=== PATIENT | female | born 1985 | race Caucasian/White ===

== ENCOUNTER 2020-05-23 13:47 | Emergency (ER) | payer OTHER, MEDICAID, SELFPAY ==
--- NOTE | ~2020-05-23 | XR_ITS ---
EXAMINATION: XR ankle RT min 3V DATE: 05/23/2020 14:32 INDICATION: Right ankle injury. TECHNIQUE: 4 views of right ankle were obtained. COMPARISON: None. FINDINGS: Bone alignment is normal. No acute fracture. There is heterotopic ossification distal to me dial malleolus, likely from old injury. Joint spaces are normal. There are enthesophytes at the poste rior and plantar aspects of calcaneal tuberosity. IMPRESSION: 1. No acute fracture. Reviewed, dictated and finalized at location A. IMPRESSION: 1. No acute fracture.
[2020-05-23 13:58] VITALS: BP 148/79; PULSE 97; RESP 20; TEMP 36.7; O2SAT 97
--- NOTE | 2020-05-23 14:46 | ED.LOWEXIN ---
HPI - Extremity Injury (Lower) General Chief Complaint: Extremity Injury, Lower Stated Complaint: 35YO female w/ right ankle after she rolled on her r ankle last night. Here for eval. Related Data Home Medications Medication Instructions Recorded Confirmed bupropion HCl 150 mg 24 hr tablet, 150 mg PO QAM 09/30/19 05/23/20 extended release fluoxetine 20 mg capsule 20 mg PO DAILY 09/30/19 05/23/20 multivitamin 1 tablet PO DAILY 09/30/19 05/23/20 omega-3 fatty acids-fish oil 300 1 cap PO DAILY cap 09/30/19 05/23/20 mg-500 mg capsule Allergies Allergy/AdvReac Type Severity Reaction Status Date / Time No Known Allergies Allergy Verified 09/30/19 12:41 Review of Systems Review of Systems: All systems reviewed & are unremarkable except as noted in HPI and below Constitutional: Constitutional: Reports as per HPI and Reports no additional constitutional complaints Eyes: Eyes: Reports as per HPI and Reports no additional eye complaints Cardiovascular: Cardiovascular: Reports as per HPI and Reports no additional cardiovascular complaints Respiratory: Respiratory: Reports as per HPI and Reports no additional respiratory complaints Gastrointestinal: Gastrointestinal: Reports as per HPI and Reports no additional gastrointestinal complaints Musculoskeletal: Musculoskeletal: Reports arthralgias (R Ankle pain) Integumentary/Breasts: Skin/Breast: Reports system reviewed and no additional complaints, except as docu [facility] Family History Family History Father Hypertension Diabetes mellitus Family history of malignant neoplasm Family history of elevated blood lipids Family history of chronic obstructive pulmonary disease Family history of coronary artery disease Mother Family history of malignant neoplasm of breast, Onset Age: 64 Family history of malignant neoplasm of breast in first degree relative Grandparent Family history of malignant neoplasm of urinary bladder Social History Social History Smoking status: Never smoker Second hand tobacco smoke exposure: No Alcohol intake: current Gender identity (if verbalized by the patient): Female Exam Const: General: healthy appearing, no acute distress and alert Orientation/consciousness: patient oriented x3 Neuro: General: patient oriented x3, moves all extremities, no meningeal signs, no focal motor deficits and CN's II-XI intact bilaterally Cranial nerves: Yes Nystagmus not present Speech: normal speech Gait exam (Neuro): Normal gait present Extrem: Other: R Ankle Mild TTP over lateral aspect. Psych: Appearance: grossly normal Mental Status: mental status grossly normal Affect: normal affect and Anxious affect present Attitude: cooperative Thought content: Yes Normal thought content present Course Course Emergency Course: R Ankle X-ray normal Vital Signs Vital signs: Vital Signs Temperature 98.1 F 05/23/20 13:58 Pulse Rate 97 05/23/20 13:58 Respiratory Rate 05/23/20 13:58 Blood Pressure 148/79 H 05/23/20 13:58 Pulse Oximetry 97 05/23/20 13:58 Temperature 98.1 F 05/23/20 13:58 Pulse Rate 97 05/23/20 13:58 Respiratory Rate 05/23/20 13:58 Blood Pressure 148/79 H 05/23/20 13:58 Pulse Oximetry 97 05/23/20 13:58 MDM - Extremity Injury (Lower) Differential Diagnosis Differential diagnosis: Likely ankle sprain and strain and ankle fracture Medical Records Attestation: I reviewed the patient's medical records. Critical Care Time Critical Care Time Critical Care Time: No Discharge Plan Discharge Clinical Impression: Ankle sprain and strain Patient Disposition: Home, Self-Care Condition: Stable Instructions: Antibiotic Form, Ankle Sprain (ED) Prescriptions: New naproxen 500 mg tablet 500 mg PO BID PRN (Reason: pain) Qty: 20 RF: 0 No Action Fish Oil 300-500 m
[2020-05-23 15:05] VITALS: PULSE 84; RESP 20; O2SAT 98
== END 2020-05-23 15:05 | disposition home or self-care (01) ==
PROVIDERS: Emergency Provider Family Medicine; PCP Family Medicine
DX: S93.401A Sprain of unspecified ligament of right ankle, initial encounter (principal)
CPT/HCPCS: 29515; 73610; 99283; L4350

== ENCOUNTER 2020-09-27 07:53 | Emergency (ER) | payer OTHER, MEDICAID, SELFPAY ==
--- NOTE | ~2020-09-27 | CT_ITS ---
EXAMINATION: CT brain wo con, CT cervical spine wo con EXAM DATE: 09/27/2020 08:23 (accession [id number]), 09/27/2020 08:24 (accession [id number]) INDICATION: Head injury, 2 episodes of syncope. Headache and neck pain. TECHNIQUE: Spiral CT of the head was performed without contrast. Axial, coronal and sagittal images were reviewed. Spiral CT of the cervical spine was performed without contrast. Axial images were rev iewed. Coronal and sagittal reformatted images were also reviewed. The dose-length product (DLP) fo r this examination was 605.33 (accession [id number]), 301.37 (accession [id number]) mGy-cm. The exposure was tailored according to patient size, and iterative reconstruction (ASIR) was used as additional dose reduction technique. Comparison is made to prior examination from 07/09/2018 (MRI). FINDINGS: HEAD CT: There is no acute intraparenchymal hemorrhage. No evidence of intraparenchymal brain mass l esion. No evidence of acute infarction. There is no mass effect or midline shift. There is no obstr uctive hydrocephalus suspected. There are no extra-axial collections. There are no acute calvarial fractures. The orbits are unremarkable. Soft tissue is unremarkable. The visualized sinuses and ma stoid air cells are well aerated. CERVICAL CT: Incomplete posterior fusion C1 arch, congenital variant. There is mild reversal of the n ormal cervical lordosis which may be positional or spasm. There is no evidence of acute cervical fra cture. The odontoid process is intact. Pre-dens space is normal. Prevertebral soft tissue is rahul l. There are no soft tissue abnormalities identified. There is no disc space widening or traumatic vertebral body subluxation suspected. Vertebral body and disc heights are well-maintained. A detai led level by level evaluation of spondylosis can be added as addendum if requested. IMPRESSION: 1. No acute intracranial findings or cervical fracture. Reviewed, dictated and finalized at location A. S CAP MAKER IMPRESSION: 1. No acute intracranial findings or cervical fracture.
[2020-09-27 07:56] VITALS: BP 109/70; PULSE 90; RESP 16; TEMP 36.8; O2SAT 100
--- NOTE | 2020-09-27 07:59 | ECG_ITS ---
Measurements Intervals [place] Rate: 86 P: 61 ND: 145 QRS: 17 QRSD: 86 T: 23 QT: 378 QTc: 452 Interpretive Statements SINUS RHYTHM BASELINE WANDER- V6 NORMAL ECG Electronically Signed On 09-27-2020 8:09:56 APPRAISAL MANAGER by Jones Strange D.O.
--- NOTE | 2020-09-27 08:06 | ED.SYNCOPE ---
HPI - Syncope General Chief Complaint: Syncope Stated Complaint: PASSED OUT HIT HEAD Source: patient and EMS Mode of arrival: EMS Limitations: no limitations History of Present Illness HPI narrative: this is a 35-year-old female that presents from home after she passed out and hit her head early this morning prior to her going to work, was witnessed by her 10-year-old daughter unsure of how long she was passed out but there was no seizure activity, no bowel or bladder dysfunction no tongue biting currently she has a headache and some nausea, patient does have a history of migraines and has not had a migraine in quite awhile currently is having migraine-type headache. There is no fever or chills no chest pain no shortness of breath no abdominal pain no diarrhea constipation. Patient currently takes medicine for anxiety and depression. MD complaint: loss of consciousness Onset (ago): unknown Prodromal symptoms: none Witnessed: Yes - by Other Context: at rest Injuries sustained associated with event: neck and head Current symptoms: headache Treatments prior to arrival: none Related Data Home Medications Medication Instructions Recorded Confirmed bupropion HCl 150 mg 24 hr tablet, 150 mg PO QAM 09/30/19 09/27/20 extended release fluoxetine 20 mg capsule 20 mg PO DAILY 09/30/19 09/27/20 ibuprofen 800 mg tablet 800 mg PO TID 06/11/20 09/27/20 Allergies Allergy/AdvReac Type Severity Reaction Status Date / Time No Known Allergies Allergy Verified 08/24/20 10:56 Review of Systems Review of Systems: All systems reviewed & are unremarkable except as noted in HPI and below PMFSH Past Medical History Medical History Ankle sprain Anxiety Cervical radiculopathy Chondromalacia patellae, right knee Chronic headaches Depression GERD (gastroesophageal reflux disease) Intractable chronic post-traumatic headache Left knee pain Lumbar radiculopathy, acute Lymphedema of both lower extremities Migraine without aura and with status migrainosus, not intractable Other specified hearing loss, bilateral Retrocalcaneal bursitis Right ankle pain Vision changes Family History Family History Father Hypertension Diabetes mellitus Family history of malignant neoplasm Family history of elevated blood lipids Family history of chronic obstructive pulmonary disease Family history of coronary artery disease Mother Family history of malignant neoplasm of breast, Onset Age: 64 Family history of malignant neoplasm of breast in first degree relative Grandparent Family history of malignant neoplasm of urinary bladder Social History Social History Smoking status: Never smoker Second hand tobacco smoke exposure: No Alcohol intake: current Gender identity (if verbalized by the patient): Female Exam Const: General: no acute distress and alert Orientation/consciousness: patient oriented x3 HENMT: Head: normal to inspection Eyes: Conjunctivae: conjunctivae normal Pupils: Equal, round and reactive pupils present EOM: EOMs intact bilaterally Neck: Neck: normal visual inspection, no lymphadenopathy and no meningeal signs Chest: Chest palpation & inspection: normal inspection of the chest Resp: Effort & Inspection: normal respiratory effort Auscultation: clear to auscultation bilaterally Cardio: Rate: regular rate Rhythm: regular rhythm GI: GI Palp: Yes Soft to palpation Urinary Catheter: Urinary Catheter: patent and draining Back/Spine/Pelvis: Back: no CVA tenderness Skin: General skin exam: normal color Neuro: General: patient oriented x3, moves all extremities and no meningeal signs Extrem: General: normal to inspection Psych: Appearance: grossly normal Mental Status: mental status grossly normal Affect: normal affect Course Course Em
[2020-09-27 08:17] LABS: Basophils Absolute Auto 0.04 K/mm3 (0.00-0.10); Basophils Percent Auto 0.6 % (0.0-1.0); Eosinophils Absolute Auto 0.07 K/mm3 (0.02-0.50); Eosinophils Percent Auto 1.1 % (1.0-6.0); Hematocrit 36.5 % (35.0-49.0); Hemoglobin 12.1 g/dL (12.0-15.0); Immature Granulocyte Absolute 0.03 K/mm3 (0.00-0.00); Immature Granulocyte Percent A 0.5 % (0.0-0.0); Lymphocytes Absolute Auto 1.83 K/mm3 (1.10-4.50); Lymphocytes Percent Auto 28.5 % (18.0-42.0); Mean Corpuscular HGB Conc 33.2 g/dL (32.0-36.0); Mean Corpuscular Hemoglobin 30.4 pg (27.0-31.0); Mean Corpuscular Volume 91.7 fL (78.0-102.0); Mean Platelet Volume 11.8 fl (9.2-11.8); Monocytes Absolute Auto 0.45 K/mm3 (0.10-0.90); Neutrophils Percent Auto 62.3 % (50.0-70.0); Platelet Count Result 208 K/mm3 (150-420); Red Blood Count 3.98 M/mm3 (4.20-5.40); Red Cell Distribution Width 12.3 % (11.6-14.4); White Blood Count 6.4 K/mm3 (4.8-10.8)
[2020-09-27] MEDS: SODIUM CHLORIDE 0.9% IV 1,000 ML 999 ML IV CONT (08:25)
[2020-09-27 08:33] LABS: Alanine Aminotransferase 21 U/L (14-59); Albumin Level 3.4 g/dL (3.4-5.0); Alkaline Phosphatase 51 U/L (46-116); Anion Gap 11 mmol/L (8-16); Aspartate Amino Transferase 16 U/L (15-37); Bilirubin,Total 0.4 mg/dL (0.00-1.00); Blood Urea Nitrogen 17 mg/dL (7-18); Calcium 8.9 mg/dL (8.5-10.1); Carbon Dioxide 25 mmol/L (21-32); Chloride 103 mmol/L (98-108); Estimated CRCL calculation 72 ml/min; Estimated Glomerular Filt Rate 52; Glucose 109 mg/dL (70-99); Lactic Acid Reflex 1.5 mmol/L (0.4-2.0); Osmolality Calculated 290 mOsm/kg (285-295); Potassium 4.2 mmol/L (3.5-5.1); Sodium 139 mmol/L (136-145); Total Protein 7.4 g/dL (6.4-8.2); Troponin I 6.8 ng/L (0.00-60.4)
[2020-09-27 08:35] LABS: Magnesium 1.8 mg/dL (1.8-2.4)
[2020-09-27] MEDS: ONDANSETRON INJ 4 MG/2 ML VIAL IV PUSH (08:35)
[2020-09-27 08:47] VITALS: BP 114/74; PULSE 83
[2020-09-27 08:48] VITALS: BP 110/67; PULSE 81
[2020-09-27 08:49] VITALS: BP 128/73; PULSE 93
[2020-09-27 09:52] LABS: Add Urine Microscopic? YES; Appearance Urine Sl Cloudy (Clear); Bilirubin Urine Negative (Negative); Blood Urine Negative (Negative); Color Urine Yellow (Yellow); Glucose Urine UA Negative (Negative); Ketones Urine Negative (Negative); Leukocyte Esterase Ur 1+ LEU/UL (Negative); Nitrate Urine Negative (Negative); Protein Urine Negative (Negative); Urobilinogen Urine 0.2 mg/dL (0.2-1.0)
[2020-09-27 09:59] LABS: Bacteria Urine 1+ /hpf; RBC Urine None seen /hpf (0-2); Squamous Epithelial Cell Urine Few /hpf (Few); WBC Urine 16-20 /hpf (0-3)
[2020-09-27 10:05] LABS: Amphetamine Screen Urine Negative (Negative); Barbiturate Screen Urine Negative (Negative); Benzodiazepines Screen Urine Negative (Negative); Cannabinoid Screen Urine Negative (Negative); Cocaine Screen Urine Negative (Negative); Methadone Screen Urine Negative (Negative); Opiate Screen Urine Negative (Negative); Phencyclidine Screen Urine Negative (Negative)
[2020-09-27 10:16] VITALS: BP 111/63; PULSE 85; RESP 20; O2SAT 99
--- NOTE | 2020-09-27 10:26 | ED.WEAKNESS ---
HPI - Weakness General Chief complaint: Syncope Stated complaint: PASSED OUT HIT HEAD Source: patient and EMS Mode of arrival: EMS Limitations: no limitations History of Present Illness HPI Narrative: This is a 20 MD Complaint: generalized weakness Onset (ago): hour(s) Duration: intermittent Location: generalized Migration: none Severity: mild Quality: tingling, numbness and aching Relieving factors: none Exacerbating factors: morning Related Data Home Medications Medication Instructions Recorded Confirmed bupropion HCl 150 mg 24 hr tablet, 150 mg PO QAM 09/30/19 09/27/20 extended release fluoxetine 20 mg capsule 20 mg PO DAILY 09/30/19 09/27/20 ibuprofen 800 mg tablet 800 mg PO TID 06/11/20 09/27/20 Allergies Allergy/AdvReac Type Severity Reaction Status Date / Time No Known Allergies Allergy Verified 08/24/20 10:56 [facility] Past Medical History Medical History Ankle sprain Anxiety Cervical radiculopathy Chondromalacia patellae, right knee Chronic headaches Depression GERD (gastroesophageal reflux disease) Intractable chronic post-traumatic headache Left knee pain Lumbar radiculopathy, acute Lymphedema of both lower extremities Migraine without aura and with status migrainosus, not intractable Other specified hearing loss, bilateral Retrocalcaneal bursitis Right ankle pain Vision changes Family History Family History Father Hypertension Diabetes mellitus Family history of malignant neoplasm Family history of elevated blood lipids Family history of chronic obstructive pulmonary disease Family history of coronary artery disease Mother Family history of malignant neoplasm of breast, Onset Age: 64 Family history of malignant neoplasm of breast in first degree relative Grandparent Family history of malignant neoplasm of urinary bladder Social History Social History Smoking status: Never smoker Second hand tobacco smoke exposure: No Alcohol intake: current Gender identity (if verbalized by the patient): Female Course Vital Signs Vital signs: Vital Signs Temperature 36.8 C 09/27/20 07:56 Pulse Rate 90 09/27/20 07:56 Respiratory Rate 16 09/27/20 07:56 Blood Pressure 109/70 09/27/20 07:56 Pulse Oximetry 100 09/27/20 07:56 Temperature 36.8 C 09/27/20 07:56 Pulse Rate 85 09/27/20 10:16 Respiratory Rate 20 09/27/20 10:16 Blood Pressure 111/63 09/27/20 10:16 Pulse Oximetry 99 09/27/20 10:16 MDM - Weakness Lab Data Result diagrams: 09/27/20 08:10 09/27/20 08:10 Labs: Lab Results 09/27/20 09/27/20 09/27/20 Range/Units 08:10 08:10 08:10 WBC 6.4 (4.8-10.8) K/mm3 RBC 3.98 L (4.20-5.40) M/mm3 Hgb 12.1 (12.0-15.0) g/dL Hct 36.5 (35.0-49.0) % MCV 91.7 (78.0-102.0) fL MCH 30.4 (27.0-31.0) pg MCHC 33.2 (32.0-36.0) g/dL RDW 12.3 (11.6-14.4) % Plt Count 208 (150-420) K/mm3 MPV 11.8 (9.2-11.8) fl Immature Gran % (Auto) 0.5 H (0.0-0.0) % Neut % (Auto) 62.3 (50.0-70.0) % Lymph % (Auto) 28.5 (18.0-42.0) % [place] % (Auto) 7.0 (2.0-11.0) % Eos % (Auto) 1.1 (1.0-6.0) % Baso % (Auto) 0.6 (0.0-1.0) % Lymph # (Auto) 1.83 (1.10-4.50) K/mm3 [place] # (Auto) 0.45 (0.10-0.90) K/mm3 Eos # (Auto) 0.07 (0.02-0.50) K/mm3 Baso # (Auto) 0.04 (0.00-0.10) K/mm3 Abs Immat Gran (auto) 0.03 H (0.00-0.00) K/mm3 Absolute Neuts (auto) 4.0 (1.7-7.2) K/mm3 Absolute Nucleated RBC 0.00 (0.00-0.00) K/mm3 Nucleated RBC % 0.0 (0-0.0) % Sodium 139 (136-145) mmol/L Potassium 4.2 (3.5-5.1) mmol/L Chloride 103 (98-108) mmol/L Carbon Dioxide 25 (21-32) mmol/L Anion Gap 11 (8-16) mmol/L BUN 17 (7-18) mg/dL Creatinine 1.18 H (0.55-1.02) m
== END 2020-09-27 10:40 | disposition home or self-care (01) ==
PROVIDERS: Emergency Provider Emergency Medicine; PCP Family Medicine
DX: N30.00 Acute cystitis without hematuria (principal); R55 Syncope and collapse
CPT/HCPCS: 36415; 70450; 72125; 80053; 80307; 81001; 83605; 83735; 84484; 85025; 87086; 93005; 96361; 96374; 99283; 99284; J2405; J7030

== ENCOUNTER 2020-11-02 15:30 | Outpatient (RCR) | payer OTHER, MEDICAID, SELFPAY ==
--- NOTE | 2020-10-21 15:47 | PTOPEVAL ---
PHYSICAL THERAPY EVALUATION AND PLAN OF CARE 10-21-20 Thank you for referring Ludmila Vang to [facility] [place], with the diagnosis of BPPV. Her treatment plan includes treatment of her chronic cervical pain and headaches, which can also cause vestibular issues. She is scheduled to be seen for therapy? 1-2 x/week for 5 weeks. Please review, sign, date and return this plan of care MARLENY. I agree with and certify that the following plan of care is medically necessary. Referring Physician Date Attending Provider: KIMBERLY SorianoPT Outpatient Evaluation Document 10/21/20 14:30 FOZIA (Rec: 10/21/20 15:47 FOZIA [id number]) Outpatient Past Medical History Past Medical History Source of Past Medical History Patient Neurological History Hx Migraine Yes Hx Other Neurological Disorders Yes: concussion, migraines daily- take excedrin daily Cardiovascular History Hx Cardiac Disorders No Significant History Respiratory History Hx Other Respiratory Disorders Yes: seasonal allergies- main with /spring Gastrointestinal History Hx Irritable Bowel Yes Genitourinary History Hx Genitourinary Disorders No Significant History Musculoskeletal History Hx Other Musculoskeletal Disorders Yes: R ankle sprain; Endocrine History Hx Endocrine Disorders No Significant History HEENT History Hx Other HEENT Disorders Yes: glasses- not had eye exam in 2 yrs Integumentary History Hx Skin Disorders No Significant History Reproductive History Hx Reproductive Disorders No Significant History Psychosocial History Hx Depression Yes Evaluation Information Problem Diagnosis positional vertigo Onset Sep 27, 2020 Prior Level of Function Activity Level (Last 3 Months) 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
--- NOTE | 2020-10-26 09:58 | PCPTNOTE ---
pt called and canceled today's treatment due to having to work;
--- NOTE | 2020-11-09 11:26 | PCPTNOTE ---
Patient called & cancelled scheduled appointment this date due to work.
--- NOTE | 2020-11-16 12:37 | PCPTNOTE ---
Patient called & cancelled scheduled appointment this date due to work.
--- NOTE | 2020-11-25 15:56 | PCPTNOTE ---
pt did not show for reevaluation today; called and left her a voice message that appt was missed. And to call if additional therapy is needed.
--- NOTE | 2020-12-10 16:00 | PCPTNOTE ---
PHYSICAL THERAPY DISCHARGE 12-10-20 Attending Provider: Cass Narayan MD Patient:Ludmila Vang Date of :1985 Ms. Vang has not returned for any further treatments since 11/02/2020, therefore she will be discharged at this time. She received the PT evaluation and one treatment session, for the diagnosis of BPPV. She called and canceled 3 and did not show for 1 appointment. The goals were not assessed. Thank you for referring Ludmila to [facility]. Please review, sign, date and return this discharge summary MARLENY. I have been updated about the patient's current status and I agree with discharge from the above service at this time. Referring Physician Date
== END 2020-12-13 07:57 | disposition home or self-care (01) ==
LOC: ANHPT 15:30
PROVIDERS: PCP Family Medicine; Referring Provider Family Medicine; Visit Provider Family Medicine
DX: H81.10 Benign paroxysmal vertigo, unspecified ear (principal)
CPT/HCPCS: 97110; 97140; 97162

== ENCOUNTER 2020-12-13 17:20 | Outpatient (CLI) | payer OTHER, MEDICAID, SELFPAY | END 2020-12-13 17:21 | disposition home or self-care (01) | LOC: ANHCOVIDVC 17:20 | PROVIDERS: PCP Family Medicine | DX: Z23 Encounter for immunization (principal) | CPT/HCPCS: 0001A; 91300 ==

== ENCOUNTER 2020-12-20 06:49 | Outpatient (CLI) | payer OTHER, MEDICAID, SELFPAY ==
--- NOTE | ~2020-12-20 | MR_ITS ---
EXAMINATION: MR brain IAC wo/w con DATE: 12/20/2020 08:09 INDICATION: Dizziness and giddiness. Tinnitus. TECHNIQUE: Magnetic resonance imaging (MRI) of the brain, brainstem, and internal auditory canals was performed without and with 20 mL MultiHance intravenous contrast. Sequences included sagittal and ax ial T1-weighted FSE, axial diffusion-weighted FS EPI, axial T2*-weighted GRE, axial T2-weighted FLAIR Propeller, axial T2-weighted Propeller, small ttvko-bi-hzzq coronal FIESTA, small agjjk-fg-arxf brian nal T1-weighted FSE, and small jqrjp-sv-pgyr axial T1-weighted SPGR. Postcontrast sequences included axial T1-weighted FSE, small ccmiv-kh-pjkf coronal T1-weighted FSE, and small indtj-ae-rhjc axial T1- weighted SPGR. Apparent diffusion coefficient (ADC) maps were created. COMPARISON: Brain MRI 07/09/2018 FINDINGS: There is no intracranial hemorrhage, acute infarction, or abnormal intracranial mass lesion . 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 The ventricles are normal in size. Cavu m septum pellucidum is noted. The paranasal sinuses are clear. The orbits are normal. The internal au ditory canals and inner and middle ears are normal. IMPRESSION: 1. Normal brain. Reviewed, dictated and finalized at location B. IMPRESSION: 1. Normal brain.
[2020-12-20 07:20] LABS: Estimated Glomerular Filt Rate > 60
[2020-12-20 08:51] LABS: Hematocrit 38.2 % (37.0-47.0); Hemoglobin 12.6 g/dL (12.0-15.0); Mean Corpuscular Hemoglobin 30.2 pg (26-34); Mean Corpuscular Volume 91.6 fl (80-100); Platelet Count Result 239 k/mm3 (150-375); Red Blood Count 4.17 M/mm3 (4.2-5.4); Red Cell Distribution Width 12.5 % (11.5-14.5); White Blood Count 7.5 K/mm3 (4.5-10.0)
[2020-12-20 09:10] LABS: Alanine Aminotransferase 17 U/L (4-35); Alkaline Phosphatase 54 U/L (38-126); Anion Gap 6 mmol/L (8-16); Aspartate Amino Transferase 25 U/L (14-36); Bilirubin,Total 0.8 mg/dL (0.2-1.3); Blood Urea Nitrogen 20 mg/dL (7-17); Calcium 9.5 mg/dL (8.4-10.2); Carbon Dioxide 25 mmol/L (22-30); Chloride 107 mmol/L (98-107); Cholesterol 183 mg/dL (0-200); Estimated Glomerular Filt Rate > 60; Glucose 96 mg/dL (65-105); HDL Direct 72 mg/dL; Sodium 138 mmol/L (137-145); Triglycerides 102 mg/dL (<150)
[2020-12-20 09:20] LABS: LDL Cholesterol Direct 84 mg/dL
[2020-12-20 11:16] LABS: Vitamin D 25 Hydroxy 57.4 ng/mL
== END 2020-12-20 06:50 | disposition home or self-care (01) ==
PROVIDERS: PCP Family Medicine; Referring Provider Nurse Practitioner; Visit Provider Physician Assistant
DX: R42 Dizziness and giddiness (principal); Z00.00 Encounter for general adult medical examination without abnormal findings
CPT/HCPCS: 70553; 80053; 80061; 82306; 82607; 83036; 84439; 84443; 85027; A9577

== ENCOUNTER 2021-01-03 17:04 | Outpatient (CLI) | payer OTHER, MEDICAID, SELFPAY | END 2021-01-03 17:05 | disposition home or self-care (01) | LOC: ANHCOVIDVC 17:05 | PROVIDERS: PCP Family Medicine | DX: Z23 Encounter for immunization (principal) | CPT/HCPCS: 0002A; 91300 ==

== ENCOUNTER 2021-01-27 08:09 | Outpatient (CLI) | payer OTHER, MEDICAID, SELFPAY | END 2021-01-27 08:10 | disposition home or self-care (01) | LOC: ANHAUDIO 08:11 | PROVIDERS: PCP Family Medicine; Visit Provider Otolaryngology | DX: H91.90 Unspecified hearing loss, unspecified ear (principal); H93.13 Tinnitus, bilateral; R42 Dizziness and giddiness | CPT/HCPCS: 92557; 92567 ==

== ENCOUNTER 2021-04-18 00:30 | Day surgery (SDC) | payer OTHER, MEDICAID, SELFPAY ==
[2021-04-12 16:26] VITALS: BMI 39.9
[2021-04-18] VITALS (9 sets, daily range): BP systolic 113–132; BP diastolic 69–84; PULSE 69–86; RESP 12–14; TEMP 36.3; O2SAT 93–100
[2021-04-18] MEDS: ACETAMINOPHEN 500 MG TABLET 1000 MG PO (06:54)
[2021-04-18] MEDS: LACTATED RINGERS 1,000 ML 30 ML IV CONT ×2 (07:00→08:36)
--- NOTE | 2021-04-18 07:03 | WPDHPUPDATE1 ---
History and Physical Update Update Date/Time: 04/18/21 07:03 History and Physical has been reviewed, including an updated exam of the patient. There are NO changes in the patient's condition. Risks, benefits, and alternatives have been discussed and questions answered. Patient agrees to proceed with procedure.
--- NOTE | 2021-04-18 07:03 | PM.HPGS ---
History of Present Illness History of Present Illness Consent: Risks, benefits, and alternatives have been discussed and questions answered. Patient agrees to proceed with procedure. Chief complaint: Desires Sterilization Narrative: Ludmila Vang is a 35 year old female requesting permanent controlvia tubal ligation. Reviewed the risks of infection, bleeding, injury to internal organs, tubal failure rate with increased ectopic, and permanent, irreversible nature of tubal. Patient agrees to proceed. Review of Systems Review of Systems: not repeated day of surgery; patient states no changes in status PMFSH Past Medical History Medical History (Updated 04/18/21 @ 07:06 by Shanelle Reyes MD) Anxiety Depression GERD (gastroesophageal reflux disease) Intractable chronic post-traumatic headache Lymphedema of both lower extremities Migraine without aura and with status migrainosus, not intractable (normal spontaneous vaginal delivery) Other specified hearing loss, bilateral Family History Family History Father Hypertension Diabetes mellitus Family history of malignant neoplasm Family history of elevated blood lipids Family history of chronic obstructive pulmonary disease Family history of coronary artery disease Mother Family history of malignant neoplasm of breast, Onset Age: 64 Family history of malignant neoplasm of breast in first degree relative Grandparent Family history of malignant neoplasm of urinary bladder Social History Social History Smoking status: Never smoker Second hand tobacco smoke exposure: No Alcohol intake: current Substance use: never Living arrangements: with family Gender identity (if verbalized by the patient): Female Sexual Orientation (if Verbalized by the Patient): Straight or Heterosexual Spiritual care concerns: No Meds Home Medications and Allergies Home Medications Medication Instructions Recorded Confirmed Type fluoxetine 20 mg capsule 20 mg PO DAILY 09/30/19 04/18/21 History ibuprofen 800 mg tablet 800 mg PO TID #90 tablet 10/04/20 04/18/21 Rx acetazolamide 250 mg tablet 250 mg PO BID #60 tablet 02/21/21 04/18/21 Rx meclizine 12.5 mg tablet See Rx Instructions .ROUTE 03/15/21 04/18/21 Rx .COMPLEX #30 tablet cholecalciferol (vitamin D3) 10 mcg PO DAILY 04/12/21 04/18/21 History [Vitamin D3] drospirenone-ethinyl estradiol 3 tablet PO DAILY 04/12/21 04/18/21 History [Nakul (28)] folic acid-vitamin B6-vit B12 1 tablet PO DAILY 04/12/21 04/18/21 History omeprazole 20 mg PO DAILY 04/12/21 04/18/21 History propranolol 20 mg PO DAILY 04/12/21 04/18/21 History Allergies Allergy/AdvReac Type Severity Reaction Status Date / Time No Known Allergies Allergy Verified 04/18/21 06:31 Exam Const: General: healthy appearing and alert Orientation/consciousness: patient oriented x3 Resp: Effort & Inspection: normal respiratory effort Auscultation: clear to auscultation bilaterally Cardio: Rate: regular rate Rhythm: regular rhythm GI: GI Palp: Yes Soft to palpation, No Tenderness to palpation present (GI) and No Palpable mass present : External Female Exam: normal external appearance Speculum Exam - Vagina: normal appearance of the vagina and normal vaginal discharge Speculum Exam - Cervix: normal appearance of the cervix Bimanual exam- vagina & uterus: uterine size normal and consistency normal Bimanual Exam- Adnexa, other: normal adnexae and No adnexal tenderness Neuro: General: patient oriented x3 Assessment and Plan Assessment and plan (1) Encounter for sterilization: Code(s): Z30.2 - Encounter for sterilization Status: Acute Assessment and Plan: plan to proceed with laparoscopic BTL with falope rings
[2021-04-18] MEDS: KETOROLAC 15 MG/ML VIAL (*BKC) IV PUSH (07:08)
--- NOTE | 2021-04-18 07:14 | WPDANESEPPF ---
Anes - Initial Pre Proc Eval Procedure: Operation Date: 04/18/21 07:30 Proposed Procedures p Laparoscopic Bilateral Tubal Ligation With Fallopian Rings - Shanelle Reyes MD Date/Time: 04/18/21 07:14 Surgeon: Shanelle Reyes MD Pre Op Diagnosis: Desires Sterilization Patient Data Age: 35 Gender: F Height: 1.65 m Weight: 111 kg Allergies Allergy/AdvReac Type Severity Reaction Status Date / Time No Known Allergies Allergy Verified 04/18/21 06:31 Home Medications Medication Instructions Recorded Confirmed Type fluoxetine 20 mg capsule 20 mg PO DAILY 09/30/19 04/18/21 History ibuprofen 800 mg tablet 800 mg PO TID #90 tablet 10/04/20 04/18/21 Rx acetazolamide 250 mg tablet 250 mg PO BID #60 tablet 02/21/21 04/18/21 Rx meclizine 12.5 mg tablet See Rx Instructions .ROUTE 03/15/21 04/18/21 Rx .COMPLEX #30 tablet cholecalciferol (vitamin D3) 10 mcg PO DAILY 04/12/21 04/18/21 History [Vitamin D3] drospirenone-ethinyl estradiol 3 tablet PO DAILY 04/12/21 04/18/21 History [Loryna (28)] folic acid-vitamin B6-vit B12 1 tablet PO DAILY 04/12/21 04/18/21 History omeprazole 20 mg PO DAILY 04/12/21 04/18/21 History propranolol 20 mg PO DAILY 04/12/21 04/18/21 History Laboratory Tests 04/18/21 06:47 Beta HCG, Quant Pending Patient hx anesthesia problems: none Family hx anesthesia problems: none PMFSH Past Medical History Medical History Anxiety Depression GERD (gastroesophageal reflux disease) Intractable chronic post-traumatic headache Lymphedema of both lower extremities Migraine without aura and with status migrainosus, not intractable (normal spontaneous vaginal delivery) Other specified hearing loss, bilateral Family History Family History Father Hypertension Diabetes mellitus Family history of malignant neoplasm Family history of elevated blood lipids Family history of chronic obstructive pulmonary disease Family history of coronary artery disease Mother Family history of malignant neoplasm of breast, Onset Age: 64 Family history of malignant neoplasm of breast in first degree relative Grandparent Family history of malignant neoplasm of urinary bladder Social History Social History Smoking status: Never smoker Second hand tobacco smoke exposure: No Alcohol intake: current Substance use: never Living arrangements: with family Gender identity (if verbalized by the patient): Female Sexual Orientation (if Verbalized by the Patient): Straight or Heterosexual Spiritual care concerns: No Anes - Eval Final PreProcedure Day of Procedure 04/18/21 07:14 Patient weight: morbidly obese Heart: regular rate and rhythm Lungs: clear to auscultation Airway: Mallampati scale class II Neurological: alert and oriented Last oral intake: >/= 8 hours ASA classification: III Emergent: no Anesthetic plan: proceed Anesthesia type and monitoring: general ETT and standard monitoring Informed Consent: The patient's anesthetic plan and its attendant risks and benefits were discussed with the patient/family/POA. Questions were solicited and answers provided to the satisfaction of the patient/family/POA.
[2021-04-18] MEDS: SCOPOLAMINE 1.5 MG PATCH TRANSDERM (07:22)
[2021-04-18 07:47] LABS: Beta HCG Quantitative < 2.39 mIU/ML
--- NOTE | 2021-04-18 08:02 | P.OP_ITS ---
Procedure Note - Detailed Date of Procedure 04/18/21 Pre-op Diagnosis Desires Sterilization Post-op Diagnosis same Procedure Performed Laparoscopic bilateral tubal ligation with Falope rings Surgeon Shanelle Reyes MD Anesthesia general Findings the uterus sounds to 8cm; tubes ovaries and uterus appeared grossly normal Description of Procedure the patient is taken to the operating room and placed under anesthesia in the dorsal lithotomy position. She was prepped and draped in the usual sterile fashion. Bladder was drained with a red rubber catheter. Sherwood speculum was placed in the vagina and the anterior lip of the cervix grasped with a tenac ulum. The uterus is sounded to 8cm and a HUGO manipulator is placed. All other vaginal instruments are removed. Attention is then turned to the abdomen where a vertical skin incision is made with the scalpel at the base of the umbilicus. The abdomen is tented and the Veress needle placed. Water drop test was normal and opening patient pressure was 7mmHg. Pneumoperitoneum was obtained using CO2 to a patient pressure of 15mmHg. The Veress needle was removed and the 5mm trocars placed it is noted to be too short. The long 5mm trocar is then opened and placed and intra-abdominal placement was confirmed with the laparoscoped. Patient is placed in Trendelenburg and the 8mm skin incision was made 2cm above this and this is pubis. The 8mm trocars placed. The blunt probe was used to bring the tubes into the surgical field. The ring applicator was used to apply a ring to each tube with a good loop of tube noted within each. Picture documentation is taken. All instruments are removed, pneumoperitoneum was reduced, and the patient was taken out of Trendelenburg position. The skin incisions were closed using 4-0 nylon in interrupted fashion. Vaginal instruments are removed. All sponge, needle, and instrument counts are correct per the OR staff. Patient is awakened from anesthesia and taken to recovery in stable condition. Estimated Blood Loss 5 Drains No Packing No Pathology none sent Complications No immediate complications Condition stable Disposition PACU
[2021-04-18] MEDS: HYDROmorphone HCL INJ (*CRX) 1 MG/ML SYR 0.5 MG IV PUSH ×3 (08:27→09:11)
[2021-04-18] MEDS: MEPERIDINE HCL INJ (*CRX) 50 MG/ML AMPUL 25 MG IV PUSH ×2 (08:44→08:53)
== END 2021-04-18 10:15 | disposition home or self-care (01) ==
PROVIDERS: PCP Family Medicine; Visit Provider Obstetrics & Gynecology Gynecology
PROC: (CPT 58671; principal; 2021-04-18 07:30)
DX: Z30.2 Encounter for sterilization (principal); F41.8 Other specified anxiety disorders; K21.9 Gastro-esophageal reflux disease without esophagitis; I89.0 Lymphedema, not elsewhere classified; G43.001 Migraine without aura, not intractable, with status migrainosus; E66.01 Morbid (severe) obesity due to excess calories; Z68.41 Body mass index [BMI] 40.0-44.9, adult
CPT/HCPCS: 58671; 36415; 84702; A4264; A9270; J0330; J1100; J1170; J1885; J2175; J2250; J2405; J2704; J3010; J7120

== ENCOUNTER 2022-03-27 16:09 | Outpatient (CLI) | payer OTHER, SELFPAY ==
--- NOTE | ~2022-03-27 | MR_ITS ---
EXAMINATION: MR cervical spine wo/w con DATE: 03/27/2022 17:13 INDICATION: Migraine variant TECHNIQUE: Magnetic resonance imaging (MRI) of the cervical spine was performed without intravenous c ontrast. Sequences included sagittal T2-weighted FSE, sagittal T2-weighted FS FSE, sagittal T1-weight ed FSE, axial MERGE and axial T2-weighted FSE. COMPARISON: None FINDINGS: Mild cervical thoracic levocurvature. Sagittal alignment is normal. Vertebral body heights are rahul l. Bone marrow signal intensity is normal. Mild disc height loss at C3-C4 and C5-C6. Cord signal int ensity is normal. Visualized cervical soft tissues are unremarkable. The following disc levels are sp ecifically discussed: C2-C3: The disc does not extend beyond the endplate margin. There is no uncovertebral joint osteoarth ritis. There is no facet joint osteoarthritis. There is no neural foraminal stenosis. There is no bk tral canal stenosis. C3-C4: Disc is bulging. There is mild bilateral uncovertebral joint osteoarthritis. There is no facet joint osteoarthritis. There is mild left neural foraminal stenosis. There is mild central canal sten osis. C4-C5: The disc does not extend beyond the endplate margin. There is mild bilateral uncovertebral syed nt osteoarthritis. There is mild right facet joint osteoarthritis. There is no neural foraminal steno sis. There is no central canal stenosis. C5-C6: Disc is mildly bulging with superimposed left paracentral disc protrusion. There is mild left and moderate right uncovertebral joint osteoarthritis. There is mild bilateral facet joint osteoarthr itis. There is mild right neural foraminal stenosis. There is mild central canal stenosis. C6-C7: Minimal central disc protrusion. There is mild right uncovertebral joint osteoarthritis. There is no facet joint osteoarthritis. There is no neural foraminal stenosis. There is no central canal s tenosis. C7-T1: The disc does not extend beyond the endplate margin. There is no uncovertebral joint osteoarth ritis. There is mild bilateral facet joint osteoarthritis. There is no neural foraminal stenosis. The re is no central canal stenosis. IMPRESSION: 1. Mild cervical spondylosis. Reviewed, dictated and finalized at location A.
[2022-03-27 16:41] LABS: Estimated Glomerular Filt Rate > 60
== END 2022-03-27 16:10 | disposition home or self-care (01) ==
PROVIDERS: PCP Family Medicine; Visit Provider Psychiatry & Neurology Neurology
DX: G43.809 Other migraine, not intractable, without status migrainosus (principal); M47.812 Spondylosis without myelopathy or radiculopathy, cervical region
CPT/HCPCS: 72156; A9577

== ENCOUNTER 2022-10-26 08:40 | Outpatient (CLI) | payer OTHER, SELFPAY ==
--- NOTE | 2022-10-26 10:45 | NEURO_ITS ---
Impression: # Complains of numbness of hands. # Mild sensory right Carpal Tunnel Syndrome. # No ulnar neuropathy. # Normal needle/EMG exam. Motor Nerve Conduction Upper Extremities Median Nerve Conduction Velocity (m/sec) Terminal Latency (msec) Response Voltage(mV) Elbow-Wrist Wrist Elbow Wrist Right 58 3.1 4 4 Left 57 3.0 2 5 Ulnar Nerve Conduction Velocity (m/sec) Terminal Latency (msec) Response Voltage(mV) Above Elbow Below Elbow Wrist Above Elbow Below Elbow Wrist Right 58 2.0 2 3 Left 60 2.3 5 6 F-Wave Latency Median (ms) Ulnar (ms) Right 29.5 28.6 Left 28.4 27.8 Sensory Nerve Conduction Upper Extremities Median Nerve Stimulation Terminal Latency (msec) Wrist/Digit Response Voltage (uV) Wrist Right 4.2/4.5 24/11 Left 3.5/3.5 41/18 Ulnar Nerve Stimulation Terminal Latency (msec) Wrist/Digit Response Voltage (uV) Wrist Right 2.2 55 Left 2.6 36 Radial Nerve Terminal Latency (msec) Response Voltage(mV) Right 2.4 11 Left 2.1 15 Left Right Muscles Examined Fibrillation Fasciculation Scarcity Voltage Duration Left Right Left Right Left Right Left Right Left Right Deltoid Biceps X X Brachioradialis Triceps X X Pronator Teres X X Ext Indicis X X Ext Digitorum X X Abd Poll Brev X X 1st Dorsal Interosseus X X Abd Dig Min MTDD
== END 2022-10-26 08:41 | disposition home or self-care (01) ==
LOC: ANHNEURO 08:41
PROVIDERS: PCP Family Medicine; Visit Provider Psychiatry & Neurology Neurology
DX: G56.01 Carpal tunnel syndrome, right upper limb (principal)
CPT/HCPCS: 95886; 95911

== ENCOUNTER 2023-01-05 00:50 | Day surgery (SDC) | payer OTHER, SELFPAY ==
[2022-12-28 11:03] VITALS: BMI 40.2
--- NOTE | 2022-12-28 11:07 | PC.NURSE ---
Report to the Outpatient Waiting Room, entrance under the green pavilion located off [facility], at time 1130 on date 01/05/23. Planned Procedure Time: 1330. Time changes happen often and if your time is changed the preop area will call you the afternoon before. - You and your visitor will be asked to self-screen and do not enter if you have any COVID symptoms. - A mask is optional within the hospital at this time. Patients may have clear liquids (water, carbonated beverages, clear teas, apple juice) until 3 hours prior to surgery with a maximum of 20 ounces. - No food from midnight until time of surgery Take the following medications with a SIP of water the morning of surgery: NONE DO NOT STOP ANY OF YOUR OTHER PRESCRIPTION MEDICATIONS PRIOR TO SURGERY EXCEPT THE FOLLOWING Medications to discontinue per physician: N/A Date to take last dose: N/A Please no make-up, nail romanian, hairspray, perfume, deodorant, or body powder the day of surgery. No jewelry (including any body piercings) or valuables the day of surgery, leave them at home. Please take a shower or bath the night before, or the morning of, surgery with an antibacterial soap. Wear comfortable, loose fitting clothing. - Jewelry must be removed prior to entering the operating room. Rings and piercings that are not removed may be cut off. - The hospital will not accept responsibility for valuables. - Please leave all valuables, including medications, at home the day of surgery. If you are going home after surgery, a licensed driver service technician must drive you home. - NO public transportation without another adult if you receive anesthesia. - We recommend that an adult stay with you for 24 hours following discharge. - We also recommend that you do not drive, make important decision, drink alcoholic beverages, or take any drugs that were not prescribed by your health care provider for at least 24 hours after your discharge time. Follow any additional instructions given to you from your surgeon. If you or anyone in your household have experienced Covid symptoms in the past week, please notify your surgeon or the nurse liaison at the phone number below for possible testing. Telephone instructions given to PT - LUCINDA PEMBERTON and asked if any additional questions and then verbalized understanding. Patient advised to call surgeon office or pre surgery nurse liaison [phone] if any additional questions.
--- NOTE | 2023-01-04 14:09 | WPDANESEPPF ---
Anes - Initial Pre Proc Eval Procedure: Operation Date: 01/05/23 13:30 Proposed Procedures p Rectal Examination Under Anesthesia, with Lateral Internal Sphincterotomy - Paul Garza DO Date/Time: 01/04/23 14:09 Surgeon: Paul Garza DO Pre Op Diagnosis: anal fissure Patient Data Age: 37 Gender: F Height: 1.65 m Weight: 109.8 kg Allergies Allergy/AdvReac Type Severity Reaction Status Date / Time cigarette smoke Allergy Intermediate cough Verified 12/28/22 11:02 Home Medications Medication Instructions Recorded Confirmed Type ibuprofen 800 mg tablet 800 mg PO TID PRN Pain 06/14/22 12/28/22 History nitroglycerin 0.4 % (w/w) rectal 1 inch RECTAL BID #30 grams 11/09/22 12/28/22 Rx ointment (Rectiv) Patient hx anesthesia problems: none Family hx anesthesia problems: none Results Review: All pre-operative results and documents have been reviewed as part of the pre-operative evaluation. [facility] Past Medical History Medical History Anxiety Contusion of bone Depression GERD (gastroesophageal reflux disease) Intractable chronic post-traumatic headache Lymphedema of both lower extremities Migraine without aura and with status migrainosus, not intractable (normal spontaneous vaginal delivery) Other specified hearing loss, bilateral Soft tissue injury of ankle Surgical History Surgical History H/O tubal ligation (~04/2021) History of colonoscopy 2019 History of sigmoidoscopy 2019 Family History Family History Father Hypertension Diabetes mellitus Family history of malignant neoplasm Family history of elevated blood lipids Family history of chronic obstructive pulmonary disease Family history of coronary artery disease Mother Family history of malignant neoplasm of breast, Onset Age: 64 Family history of malignant neoplasm of breast in first degree relative Grandparent Family history of malignant neoplasm of urinary bladder Social History Social History Smoking status: Never smoker Second hand tobacco smoke exposure: No Alcohol intake: current Drinks per week: 1 Alcohol use details: Rarely Substance use: never Substance use type: does not use Lack of Transportation: No Lack of Food: Never True Current Housing: I Have Housing Concerned About Future Housing: No Difficulty Paying Gas/Electric Bills: No Difficulty Paying for Meds: No Currently Unemployed: No Education: Trade/Vocational Certificate Difficulty w/ Childcare or Family Care: No Living arrangements: with family Occupation/Education: occupation 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/education 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 Gender identity (if verbalized by the patient): Female Sexual Orientation (if Verbalized by the Patient): Straight or Heterosexual Spiritual care concerns: No Anes - Eval Final PreProcedure Day of Procedure 01/04/23 14:09 Patient weight: morbidly obese Heart: regular rate and rhythm Lungs: clear to auscultation Airway: Mallampati scale class II Neurological: alert and oriented Last oral intake: >/= 8 hours ASA classification: III Emergent: no Anesthetic plan: proceed Anesthesia type and monitoring: general ETT and standard monitoring Results Review: All pre-operative results and documents have been reviewed as part of the pre-operative evaluation. Informed Consent: The patient's anesthetic plan and its attendant risks and benefits were discussed with the patient/family/POA. Questions were solicited and answers provided to the satisfaction of the patient/family/POA.
[2023-01-05] VITALS (7 sets, daily range): BP systolic 97–125; BP diastolic 67–81; PULSE 42–75; RESP 12–24; TEMP 36.1–36.7; O2SAT 97–100
[2023-01-05] MEDS: KETOROLAC 15 MG/ML VIAL (*BKC) IV PUSH (12:30)
[2023-01-05] MEDS: ACETAMINOPHEN 500 MG TABLET 1000 MG PO (12:30)
[2023-01-05] MEDS: LACTATED RINGERS 1,000 ML 30 ML IV CONT (12:30)
[2023-01-05] MEDS: SCOPOLAMINE 1.5 MG PATCH TRANSDERM (12:50)
--- NOTE | 2023-01-05 13:04 | WPDHPUPDATE1 ---
History and Physical Update Update Date/Time: 01/05/23 13:04 History and Physical has been reviewed, including an updated exam of the patient. There are NO changes in the patient's condition. Risks, benefits, and alternatives have been discussed and questions answered. Patient agrees to proceed with procedure.
--- NOTE | 2023-01-05 13:04 | PM.IMHP ---
H&P: HPI History of Present Illness Date/Time: 01/05/23 13:04 Chief Complaint: Anal fissure, rectal bleeding Narrative: This is a 37-year-old woman who presents with an anal fissure. She has been experiencing painful bowel movements and rectal bleeding for the past couple months. She has tried prescription creams with no significant affect. She now presents for rectal EUA and anal sphincterotomy. Review of Systems Review of Systems: All systems reviewed & are unremarkable except as noted in HPI and below Constitutional: Constitutional: Denies chills, Denies fever(s), Denies headache(s) and Denies weight loss Eyes: Eyes: Denies change in vision ENT: Denies dizziness, Denies headache(s), Denies neck mass and Denies throat swelling Cardiovascular: Cardiovascular: Denies chest pain, Denies lightheadedness and Denies dyspnea Respiratory: Respiratory: Denies cough, Denies dyspnea and Denies wheezing Gastrointestinal: Gastrointestinal: Denies abdominal pain, Denies change in bowel habits, Denies nausea and Denies vomiting Genitourinary: Genitourinary: Denies hematuria and Denies dysuria Musculoskeletal: Musculoskeletal: Reports as per HPI Integumentary/Breasts: Skin/Breast: Reports as per HPI Neurologic: Denies dizziness and Denies headache(s) Allergic/Immunologic: Allergic/Immunologic: Denies throat swelling and Denies wheezing PMF Past Medical History Medical History Anxiety Contusion of bone Depression GERD (gastroesophageal reflux disease) Intractable chronic post-traumatic headache Lymphedema of both lower extremities Migraine without aura and with status migrainosus, not intractable (normal spontaneous vaginal delivery) Other specified hearing loss, bilateral Soft tissue injury of ankle Surgical History Surgical History H/O tubal ligation (~04/2021) History of colonoscopy 2019 History of sigmoidoscopy 2019 Family History Family History Father Hypertension Diabetes mellitus Family history of malignant neoplasm Family history of elevated blood lipids Family history of chronic obstructive pulmonary disease Family history of coronary artery disease Mother Family history of malignant neoplasm of breast, Onset Age: 64 Family history of malignant neoplasm of breast in first degree relative Grandparent Family history of malignant neoplasm of urinary bladder Social History Social History Smoking status: Never smoker Second hand tobacco smoke exposure: No Alcohol intake: current Drinks per week: 1 Alcohol use details: Rarely Substance use: never Substance use type: does not use Lack of Transportation: No Lack of Food: Never True Current Housing: I Have Housing Concerned About Future Housing: No Difficulty Paying Gas/Electric Bills: No Difficulty Paying for Meds: No Currently Unemployed: No Education: Trade/Vocational Certificate Difficulty w/ Childcare or Family Care: No Living arrangements: with family Occupation/Education: occupation 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
[2023-01-05 13:10] LABS: SPREG INTERNAL CONTROL Positive; Serum Qual hCG Negative
[2023-01-05] MEDS: ceFAZolin 2 GM/D5W 50 ML 2 GM/50 ML BAG IVPB (13:10)
--- NOTE | 2023-01-05 13:53 | W.PM.PROC2 ---
Procedure Note - Detailed Date of Procedure 01/05/23 Pre-op Diagnosis anal fissure, rectal bleeding Post-op Diagnosis Same (Left anterior anal fissure) Procedure Performed Rectal exam under anesthesia with right lateral internal sphincterotomy Surgeon Paul Garza, DO Anesthesia General and Local (Exparel) Indications This is a 37-year-old woman who presented with rectal pain and rectal bleeding for the past couple months. She was originally seen in the office and was given a prescription for nifedipine ointment. She was not experiencing any significant relief with this. Discussions were made with the patient about treatment options and decision was made to proceed with rectal exam under anesthesia with lateral internal sphincterotomy. Findings Rectal exam under anesthesia was performed. The patient was found to have a left anterior anal fissure. There was sentinel tag associated with this area. The sentinel tag was excised and discarded. Due to the location fissure, I chose to perform the lateral internal sphincterotomy on right side instead of the left to avoid a potential keyhole deformity. The internal sphincter muscle fibers were isolated and sphincterotomy was performed with electrocautery. No specimens were obtained for pathology. Description of Procedure Procedure as well as risks, benefits, and alternatives were discussed with the patient. Written consent was obtained and placed in chart prior to procedure. Patient was brought back to surgical suite. She was placed supine on the hospital stretcher. Time-out was done to confirm patient and procedure. She was then intubated by the anesthesia department. She was then repositioned into prone fabian-knife position on the operating table. Her perirectal area was prepped and draped in sterile fashion using Betadine prep. Digital rectal exam was initially performed. Exparel was then infiltrated locally around the perianal region. A Hill-Frias anoscope was then inserted in the anal rectal canal was carefully inspected. The left anterior anal fissure was identified with a sentinel tag but there did not appear to be any other significant abnormalities. The Hill Frias anoscope was removed and a Fansler anoscope was then inserted. Due to the location of the fissure, I chose to perform the sphincterotomy on the right side. A right lateral internal sphincter muscle was palpated and the intersphincteric groove was palpated. A 2 cm incision was made over this region using a 15 blade scalpel. Electrocautery was then used for hemostasis. The internal sphincter muscle fibers were identified and isolated with a curved hemostat. The sphincterotomy was then performed using electrocautery to transect the muscle fibers. After performing this, there appeared to be adequate release of spasm along this region. Hemostasis appeared adequate. The area was then irrigated with sterile saline. The anal mucosa was then closed over the sphincterotomy using 3-0 chromic simple interrupted sutures. Then repositioned the scope over the fissure. The sentinel tag was excised with curved scissors discarded. Was some bleeding at this site so the mucosa was reapproximated and the bleeding vessel was ligated using a 3-0 chromic [id number] suture. Hemostasis then appeared adequate. The wound edges of the fissure were then cauterized using electrocautery to help promote granulation closure. The area was irrigated with sterile saline. No other abnormalities noted. The anoscope was then removed and Gelfoam was then inserted. Fluffed gauze, ABD pad mesh underwear were then applied. The patient was then awakened from anesthesia, extubated, and transferred to recovery. Estimated Blood Loss 20 Packing Yes (Gelfoam within the anal canal) Complications No immediate complications Condition Stable Disposition Same day [facility] Billing Surgery - Charge Forward: Surgery Billing
[2023-01-05] MEDS: fentaNYL CITRATE INJ (*CRX) 100 MCG/2 ML VIAL 25 MCG IV PUSH ×2 (14:34→14:38)
== END 2023-01-05 15:45 | disposition home or self-care (01) ==
PROVIDERS: Anesthesiology; PCP Family Medicine; Visit Provider Surgery
PROC: (CPT 46080; principal; 2023-01-05 13:30)
DX: K60.2 Anal fissure, unspecified (principal); E66.01 Morbid (severe) obesity due to excess calories; Z68.41 Body mass index [BMI] 40.0-44.9, adult
CPT/HCPCS: 46080; 36415; 84703; A9270; C9290; J0690; J1885; J2250; J2270; J2704; J3010; J7120

== ENCOUNTER 2023-08-14 07:52 | Outpatient (CLI) | payer OTHER, SELFPAY ==
--- NOTE | ~2023-08-14 | NM_ITS ---
EXAMINATION: NM hepatobiliary wo pharm DATE: 08/14/2023 11:54 INDICATION: Gastroesophageal reflux disease. COMPARISON: Ultrasound 08/14/2023 TECHNIQUE: 5.2 mCi Tc-99m mebrofenin (Choletec) was administered intravenously. Scintigraphic images of the abdomen were obtained for one hour. Then, the patient drank 8 oz Ensure, and imaging was cont inued for 60 minutes. FINDINGS: There is normal clearance of radiotracer from the blood pool. There is homogeneous tracer u ptake by the liver. Activity progresses to the bowel and gallbladder. Gallbladder ejection fraction (GBEF) was 68%. Note that with this technique, normal GBEF >= 33%. IMPRESSION: 1. Normal hepatobiliary scintigraphy. Reviewed, dictated and finalized at location A. GRINDER
--- NOTE | ~2023-08-14 | US_ITS ---
US abdomen limited INDICATION: Gastroesophageal reflux PROCEDURE: Realtime right upper abdominal ultrasound. COMPARISON: No prior studies for comparison. FINDINGS: The pancreas is normal without focal mass or pancreatic ductal dilation. Liver echotexture is slightly increased, consistent with fatty infiltration. There is normal directional flow in the portal vein. The gallbladder is normal without stones, gallbladder wall thickening or pericholecystic fluid. Comm on bile duct measures 3 mm. No sonographic Simon's sign. IMPRESSION: 1: Fatty infiltration of the liver. Reviewed, dictated and finalized at location A. 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
== END 2023-08-14 07:53 | disposition home or self-care (01) ==
PROVIDERS: PCP Family Medicine
DX: K58.2 Mixed irritable bowel syndrome (principal); K21.9 Gastro-esophageal reflux disease without esophagitis; K76.0 Fatty (change of) liver, not elsewhere classified
CPT/HCPCS: 76705; 78226; A9537

== ENCOUNTER 2023-08-15 15:47 | Outpatient (CLI) | payer OTHER, SELFPAY ==
--- NOTE | ~2023-08-15 | MM_ITS ---
EXAMINATION: MM screening eulalia BI w verónica HISTORY: Screening TECHNIQUE: Craniocaudal and mediolateral oblique 3-D tomosynthesis images were obtained and synthetic 2-D images were generated. CAD analysis was submitted and interpreted. COMPARISON: No prior mammogram is available for comparison at this institution. BREAST PARENCHYMAL COMPOSITION: There are scattered areas of fibroglandular density. FINDINGS: There is no evidence of suspicious mass, calcification, or architectural distortion to sugg est malignancy in either breast. There has been no suspicious interval change. IMPRESSION: 1. No mammographic evidence of malignancy. 2. Recommend routine screening mammography in one year. BI-RADS Category 1: Negative Reviewed, dictated and finalized at location A. PERSON
== END 2023-08-15 15:48 | disposition home or self-care (01) ==
LOC: ANHIMG 15:50
PROVIDERS: PCP Family Medicine; Visit Provider Obstetrics & Gynecology
DX: Z12.31 Encounter for screening mammogram for malignant neoplasm of breast (principal)
CPT/HCPCS: 77063; 77067

== ENCOUNTER 2023-11-18 11:25 | Emergency (ER) | payer OTHER, SELFPAY ==
--- NOTE | ~2023-11-18 | XR_ITS ---
EXAMINATION: XR ankle LT min 3V, XR heel LT min 2V DATE: 11/18/2023 11:48 INDICATION: Left Achilles tendon and heel pain post injury TECHNIQUE: 1. Anteroposterior, oblique, mortise, and lateral views of the affected ankle were obtained. 2. Axial and lateral views of the left calcaneus were obtained. COMPARISON: None. FINDINGS: Alignment is normal. Tiny heterotopic ossicle near the tip of the medial malleolus likely sequela of chronic deltoid ligament sprain. No fracture. No cortical erosions or periosteal reaction. Joint spac es are well maintained. No ankle joint effusion. The soft tissues are unremarkable with normal appea kamlesh to the shadow of the Achilles tendon.. IMPRESSION: 1. Tiny heterotopic ossicle near the tip the medial malleolus likely sequela of chronic deltoid ligam ent sprain. Otherwise normal left ankle and calcaneal radiographs. Reviewed, dictated and finalized at location A. IMPRESSION: 1. Tiny heterotopic ossicle near the tip the medial malleolus likely sequela of chronic deltoid ligament sprain. Otherwise normal left ankle and calcaneal rad iographs.
[2023-11-18 11:31] VITALS: BP 117/93; PULSE 96; RESP 16; TEMP 36.3; O2SAT 99
--- NOTE | 2023-11-18 11:33 | ED.LOWEXIN ---
HPI - Extremity Injury (Lower) General Chief Complaint: Extremity Injury, Lower Stated Complaint: Injured Leg Time Seen by Provider: 11/18/23 11:34 Source: patient Mode of arrival: ambulatory Limitations: no limitations History of Present Illness HPI Narrative: 38 yo F presents with c/o pain to L achilles tendon and heel for 3 day. Pt was helping load stuff from her parents car to her car and felt pop and pain. has been icing and elevating without relief of pain. Hx of achilles tendonitis and plantar fasciitis. unable to contact her corn shucker over the weekend. Pt concerned for achilles tendon rupture. ambulatory with slight limp. All systems reviewed and negative except as noted above. Related Data Home Medications Medication Instructions Recorded Confirmed amitriptyline 10 mg tablet 10 mg PO DAILY 11/18/23 11/18/23 dicyclomine 20 mg tablet 20 mg PO DAILY 11/18/23 11/18/23 omeprazole 40 mg capsule,delayed 40 mg PO DAILY 11/18/23 11/18/23 release Allergies Allergy/AdvReac Type Severity Reaction Status Date / Time cigarette smoke Allergy Intermediate cough Verified 11/18/23 11:29 Review of Systems Review of Systems: CONSTITUTIONAL: Denies fever, chills, or sweats. EYES: Denies visual changes, redness, or discharge. ENT: Denies rhinorrhea, congestion, sore throat, or otalgia. CARDIOVASCULAR: Denies chest pain, palpitations, or edema. RESPIRATORY: Denies cough or dyspnea. GASTROINTESTINAL: Denies abdominal pain, nausea, vomiting, or diarrhea. GENITOURINARY: Denies dysuria or hematuria. SKIN: Denies rash or itching. MUSCULOSKELETAL: Denies back pain or myalgia. reports pain to L achilles tendon and L heel NEUROLOGIC: Denies headache, numbness, or weakness. PSYCHIATRIC: Denies anxiety or depression. All other systems reviewed are negative, except as documented in HPI. [facility] Past Medical History Medical History (Updated 11/18/23 @ 12:08 by Karissa Haywood NP) Anxiety Contusion of bone Depression Fatty liver GERD (gastroesophageal reflux disease) Intractable chronic post-traumatic headache Lymphedema of both lower extremities Migraine without aura and with status migrainosus, not intractable (normal spontaneous vaginal delivery) Other specified hearing loss, bilateral Soft tissue injury of ankle Surgical History Surgical History H/O rectal sphincterotomy 01/05/23 Rectal exam under anesthesia with right lateral internal sphincterotomy H/O tubal ligation (~04/2021) History of colonoscopy 2019 History of sigmoidoscopy 2019 Family History Family History Father Hypertension Diabetes mellitus Family history of malignant neoplasm Family history of elevated blood lipids Family history of chronic obstructive pulmonary disease Family history of coronary artery disease Mother Family history of malignant neoplasm of breast, Onset Age: 64 Family history of malignant neoplasm of breast in first degree relative Grandparent Family history of malignant neoplasm of urinary bladder Social History Social History Smoking status: Never smoker Second hand tobacco smoke exposure: No Alcohol intake: current Drinks per week: 1 Alcohol use details: Rarely Substance use: never Substance use type: does not use Lack of Transportation: No Lack of Food: Never True Current Housing: I Have Housing Concerned About Future Housing: No Difficulty Paying Gas/Electric Bills: No Difficulty Paying for Meds: No Currently Unemployed: No Education: Trade/Vocational Certificate Difficulty w/ Childcare or Family Care: No Living arrangements: with family Occupation/Education: occupation 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
== END 2023-11-18 12:09 | disposition home or self-care (01) ==
PROVIDERS: Emergency Provider Nurse Practitioner Family; PCP Family Medicine
DX: S86.092A Other specified injury of left Achilles tendon, initial encounter (principal); X58.XXXA Exposure to other specified factors, initial encounter; K76.0 Fatty (change of) liver, not elsewhere classified; K21.9 Gastro-esophageal reflux disease without esophagitis
CPT/HCPCS: 73610; 73650; 99213; G0463

== ENCOUNTER 2023-12-06 07:35 | Outpatient (CLI) | payer OTHER, SELFPAY ==
--- NOTE | ~2023-12-06 | MR_ITS ---
MRI of the left ankle Clinical history: Plantar fascial fibromatosis Technique: Coronal proton-density and proton-density fat-sat images, axial proton-density and proton- density fat-sat images, and sagittal proton-density and proton-density fat-sat images were acquired. Findings: Syndesmotic ligaments are intact. Anterior and posterior talofibular ligaments, and calcane ofibular ligament are intact. Deltoid ligament is intact. Medial flexor tendons, peroneal tendons, anterior extensor tendons, and Achilles tendon are intact. T here is mild tenosynovitis of the peroneal tendons at the level of the distal tip of the lateral mall eolus. No osteochondral lesion of the talar dome identified. Bone marrow signals and joint spaces are intact . No significant joint effusion. There is focal thickening of the medial aspect of the proximal plantar fascia without significant sof t tissue edema. No distinct fibroma/mass identified. No abnormal fluid collection identified. Impression: Focal thickening of the medial aspect of the proximal plantar fasciitis without definite mass or acut e inflammatory change. This could reflect chronic plantar fasciitis. Mild tenosynovitis of the peroneal tendons, as detailed above. Reviewed, dictated and finalized at [facility]. Impression: Focal thickening of the medial aspect of the proximal plantar fasciitis without definite mass or acute inflammatory change. This could reflect chronic plantar fasciitis. Mild tenosynovitis of the peroneal tendons, as detailed above.
== END 2023-12-06 07:36 | disposition home or self-care (01) ==
PROVIDERS: PCP Family Medicine; Visit Provider Podiatrist Foot & Ankle Surgery
DX: M72.2 Plantar fascial fibromatosis (principal); M76.72 Peroneal tendinitis, left leg
CPT/HCPCS: 73721

== ENCOUNTER 2024-05-14 12:58 | Outpatient (CLI) | payer OTHER, SELFPAY ==
--- NOTE | ~2024-05-14 | XR_ITS ---
3 VIEWS LUMBAR SPINE Ordering provider: Cass Narayan MD History: . LOW BACK PAIN, RADIATES TO SARA LEGS . Comparison: April 09, 2019 FINDINGS: VERTEBRAL BODIES: No visible fracture or subluxation. DISK SPACES: Normal. SOFT TISSUES: Normal. IMPRESSION: No acute osseous abnormality lumbar spine. Reviewed, dictated and finalized at location A.
== END 2024-05-14 12:59 | disposition home or self-care (01) ==
LOC: ANHIMG 13:02
PROVIDERS: PCP Family Medicine; Visit Provider Family Medicine
DX: M54.50 Low back pain, unspecified (principal)
CPT/HCPCS: 72110

== ENCOUNTER 2024-11-05 17:23 | Emergency (ER) | payer OTHER, SELFPAY ==
--- NOTE | ~2024-11-05 | XR_ITS ---
HISTORY: right knee pain COMPARISON: None TECHNIQUE: 4 views of the right knee were performed FINDINGS: No acute or subacute fracture, erosion, lytic or sclerotic lesion. Medial tibiofemoral joint space narrowing is identified. Small suprapatellar joint effusion is identified. The infrapatellar joint space is clear. IMPRESSION: Small suprapatellar joint effusion with degenerative disease, without acute fracture. Reviewed, dictated and finalized at location A. IGN AGENT IMPRESSION: Small suprapatellar joint effusion with degenerative disease, with out acute fracture.
[2024-11-05 17:25] VITALS: BP 158/98; PULSE 107; RESP 18; TEMP 36.6; O2SAT 100
--- NOTE | 2024-11-05 17:37 | ED.EXTPRO ---
HPI - Extremity Problem General Chief complaint: Extremity Problem,Nontraumatic Stated complaint: Injury to right knee Time Seen by Provider: 11/05/24 17:32 Source: patient Mode of arrival: ambulatory Limitations: no limitations History of Present Illness HPI Narrative: This is a 39 year old female that presents to the ER for right knee pain. Reports an old injury to the knee years ago. Reports over the last week her knee has been hurting again. She had to climb a couple of flights of stairs which seems to have exacerbated it. Reports she is unable to bear weight due to pain. She has an appointment with orthopedics, but it is not until next month. She has not been able to work. Denies fever, erythema, edema. Related Data Home Medications ?Medication ?Instructions ?Recorded ?Confirmed ?Last Taken ?Type amitriptyline 10 mg tablet 10 mg PO DAILY 11/18/23 11/18/23 Unknown History dicyclomine 20 mg tablet 20 mg PO DAILY 11/18/23 11/18/23 Unknown History omeprazole 40 mg capsule,delayed 40 mg PO DAILY 11/18/23 11/18/23 Unknown History release Allergies Allergy/AdvReac Type Severity Reaction Status Date / Time cigarette smoke Allergy Intermediate cough Verified 11/05/24 17:24 Review of Systems Review of Systems: CONSTITUTIONAL: Denies fever SKIN: Denies erythema MUSCULOSKELETAL: Reports joint pain, and myalgia. NEUROLOGIC: Denies numbness, or weakness. All systems reviewed & are unremarkable except as noted in HPI and below PMFSH Past Medical History Medical History (Updated 11/05/24 @ 18:47 by Bina Taylor PA-C) Fatty liver Soft tissue injury of ankle Contusion of bone (normal spontaneous vaginal delivery) Anxiety Depression GERD (gastroesophageal reflux disease) Intractable chronic post-traumatic headache Lymphedema of both lower extremities Migraine without aura and with status migrainosus, not intractable Other specified hearing loss, bilateral Surgical History Surgical History H/O rectal sphincterotomy 01/05/23 Rectal exam under anesthesia with right lateral internal sphincterotomy History of sigmoidoscopy 2018 History of colonoscopy 2019 H/O tubal ligation (~04/2021) Family History Family History Father Hypertension Diabetes mellitus Family history of malignant neoplasm Family history of elevated blood lipids Family history of chronic obstructive pulmonary disease Family history of coronary artery disease Mother Family history of malignant neoplasm of breast, Onset Age: 64 Family history of malignant neoplasm of breast in first degree relative Grandparent Family history of malignant neoplasm of urinary bladder Social History Social History Smoking status: Never smoker Second hand tobacco smoke exposure: No Alcohol intake: current Drinks per week: 1 Alcohol use details: Rarely Substance use: never Substance use type: does not use Lack of Transportation: No Lack of Food: Never True Current Housing: I Have Housing Concerned About Future Housing: No Difficulty Paying Gas/Electric Bills: No Difficulty Paying for Meds: No Currently Unemployed: No Education: Trade/Vocational Certificate Difficulty w/ Childcare or Family Care: No Living arrangements: with family Occupation/Education: occupation 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 HEAD: Normocephalic, atraumatic. EYES: EOMI. EXTREMITIES: Normal range of motion. No edema, erythema. Normal DP pulse. Normal sensation SKIN: Warm, dry, no rash. NEURO: No focal deficits. Alert and oriented x3. PSYCH: Normal mood and affect Course Course Emergency Course: Patient updated on her workup and agrees with plan of care Vital Signs Vital signs: Vital Signs Temperature 97.9 F 11/05/24 17:25 Pulse Rate 107 H 11/05/24 17:25 Respiratory Rate 18 11/05/24 17:25 Blood Pressure 158/98 H 11/05/24 17:25 Pulse Oximetry 100 11/05/24 17:25 Temperature 97.9 F 11/05/24 17:25 Pulse Rate 107 H 11/05/24 17:25 Respiratory Rate 18 11/05/24 17:25 Blood Pressure 158/98 H 11/05/24 17:25 Pulse Oximetry 100 11/05/24 17:25 MDM - Extremity (Nontraumatic) MDM Narrative Medical decision making narrative: Patient presents to the emergency department for right knee pain. No overt injury, reports exacerbation after walking several flights of stairs. She is neurovascularly intact. Knee x-ray shows a small suprapatellar joint effusion with degenerative disease. Patient placed in Jovan wrap and given crutches for comfort. Instructed to have continued follow-up with orthopedics as planned. She was given warnings to return to the ER Differential Diagnosis Differential diagnosis: Likely other (knee sprain, arthritis, tendinitis) Imaging Data Radiologist's impression: ITS Impressions Knee X-Ray 11/05/24 18:15 IMPRESSION: Small suprapatellar joint effusion with degenerative disease, without acute fracture. Critical Care Time Critical Care Time Critical Care Time: No Discharge Plan Discharge Clinical Impression: Right knee sprain Qualifiers: Encounter type: initial encounter Involved ligament of knee: unspecified ligament Qualified Code(s): S83.91XA - Sprain of unspecified site of right knee, initial encounter Patient Disposition: Home, Self-Care Condition: Stable Instructions: Knee Sprain (ED) Additional Instructions: Return to the ER if you experience fever, redness and swelling of your extremity, numbness or any other symptoms that are concerning to you Wear JOVAN wrap and use crutches. No weight on the affected leg until able to bear weight without pain. Ice and elevate extremity. Toradol as needed for pain. You may alternate this with Tylenol. Do not take other anti-inflammatories if you take Toradol (Ibuprofen, Naproxen, Aleve, etc) Follow up with orthopedics for further care. Patient Language: Greek Prescriptions: New ketorolac 10 mg tablet 10 mg PO Q8H PRN (Reason: pain) 5 Days Qty: 15 0RF Rx Instructions: maximum total duration of 5 days from all oral, intranasal, or parenteral formulations No Action omeprazole 40 mg capsule,delayed release(DR/EC) 40 mg PO DAILY dicyclomine 20 mg tablet 20 mg PO DAILY amitriptyline 10 mg tablet 10 mg PO DAILY Follow-up/Referrals: Gucci Ott MD [Physician] - Cass Narayan MD [Primary Care Provider] -
--- OUTSIDE RECORDS SUMMARY | 2024-11-05 17:56 | XMS_ITS | Clinical Summary ---
Author Organization [facility] Address [address] [place] [id number] Care Team Providers Care Anchorman Name Role Phone Cass Narayan MD Primary Care Provider + Frandy Wilson MD Unavailable Allergies No known active allergies Medications meclizine (ANTIVERT) 12.5 mg tablet 2 Active ibuprofen (ADVIL,MOTRIN) 800 mg tablet Take 800 mg by mouth daily Active acetaminophen-a spirin-caffeine (EXCEDRIN MIGRAINE) 250-250-65 mg per tablet Take 1 tablet by mouth every 6 (six) hours as needed Active oseltamivir (TAMIFLU) 75 mg capsule TAKE 1 CAPSULE BY MOUTH EVERY 12 HOURS FOR 5 DAYS 2 Active diclofenac (CATAFLAM) 50 mg tablet Take 1 tablet (50 mg total) by mouth 3 (three) times a day 3 Active diclofenac sodium (VOLTAREN) 1 % gel Apply topically 4 (four) times a day Active nystatin powder USE DIRECTED TOPICALLY NEEDED FOR IRRITATION 3 Active omeprazole (PriLOSEC) 40 mg capsule Take 1 capsule (40 mg total) by mouth daily Active Active Problems Problem Noted Date Diagnosed Date Vestibular migraine 06/20/2022 Surgical History Surgery Date Site/Laterality Comments TUBAL LIGATION Medical History Medical History Date Comments GERD (gastroesophageal reflux disease) Headache Family History Medical History Relation Name Comments Heart disease Father Cancer Maternal Grandfather Cancer Mother Relation Name Status Comments Father Maternal Grandfather Mother Social History Tobacco Use Types Packs/Day Years Used Date Smoking Tobacco: Never Tobacco Cessation:Counseling Given: Not Answered Comments Unknown Sex and Gender Information Value Date Recorded Sex Assigned at Not on file 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 Gender Identity Not on file Sexual Orientation Not on file Obstetrics History Last Filed Vital Signs Vital Sign Reading Time Taken Comments Blood Pressure - - Pulse - - Temperature - - Respiratory Rate - - Oxygen Saturation - - Inhaled Oxygen Concentration - - Weight 121.6 kg (268 lb) 06/20/2022 9:49 AM CDT Height 165.1 cm (5' 5 ) 06/20/2022 9:49 AM CDT Body Mass Index 44.6 06/20/2022 9:49 AM CDT Plan of Treatment Health Maintenance Due Date Last Done Comments Breast Cancer Screening-Mammogram 1984 Cervical Cancer Screening 1984 Depression Screening 1984 Hepatitis C Screening 1984 DTaP/Tdap/Td Vaccine (1 - Tdap) 1995 Varicella Vaccines (1 of 2 - 13+ 2-dose series) 1997 Hepatitis B Screening 2002 Regular Well Visit/Exam 18-64 2002 Covid-19 Vaccine (4 - 2023-2 5 season) 2024 09/07/2021, 01/03/2021, 12/13/2020 Influenza Vaccine (#1) 2024 5, 09/15/2013 HPV Vaccines Aged Out No longer eligi ble based on patient's age to complete this topic Pneumococcal vaccine <65 Aged Out No longer eligible based on patient's age to complete this topic Insurance [facility] Care Teams Anchorman Relationship Specialty Start Date End Date Cass Narayan MD PCP - General Family Medicine 05/30/22 Frandy Wilson MD [address] [facility] [place] [address] Referring Physician Otolaryngology 06/20/22
--- OUTSIDE RECORDS SUMMARY | 2024-11-05 17:56 | XMS_ITS | Clinical Summary ---
Author Organization [facility] Address [address] [place] [address] Care Team Providers Care Warp Yarn Sorter Name Role Phone Cass Narayan MD Primary Care Provider [phone] Social History Tobacco Use Types Packs/Day Years Used Date Smoking Tobacco: Never Assessed Comments Unknown Sex and Gender Information Value Date Recorded Sex Assigned at Not on file Legal Sex Female 5:01 PM CDT Gender Identity Not on file Sexual Orientation Not on file Plan of Treatment Health Maintenance Due Date Last Done Comments Cervical Cancer Screening Pa p Smear (Age 30 to 64) Every 3 Years 1984 Annual Physical 1987 Hepatitis C 2002 DTaP, Tdap and Td Vaccines ( 1 - Tdap) 2003 Hepatitis B Vaccines (1 of 3 - 19+ 3-dose series) 2003 Cervical Cancer Screening Pa p with HPV Testing (Age 30 to 64) Every 5 Years 2014 Cervical Cancer Screening with HPV 2014 COVID-19 Vaccine (2023-2 5 season) 2024 Mammogram Screening 2024 Influenza Adult (#1) 2024 HPV Vaccines Aged Out No longer eligi ble based on patient's age to complete this topic Meningococcal B Vaccine Aged Out No l onger eligible based on patient's age to complete this topic Meningococcal Vaccine Aged Out No kary dionne eligible based on patient's age to complete this topic Pneumococcal Vaccine: Pediat rics (0 to 5 Years) and At-Risk Patients (6 to 64 Years) Aged Out No longer eligible b ased on patient's age to complete this topic RSV Immunizations Under 20 Months Aged Out No longer eligible based on patient's age to complete this topic Care Teams Warp Yarn Sorter Relationship Specialty Start Date End Date Cass Narayan MD [facility] - General 04/05/13
--- OUTSIDE RECORDS SUMMARY | 2024-11-05 17:56 | XMS_ITS | Encounter Summary ---
Author Organization [facility] Address [address] [place] [address] Phone Care Team Providers Care Curing Bin Operator Name Role Phone Cass Narayan MD Primary Care Provider [phone] Shanelle Reyes MD Unavailable [phone] Adrienne Rubio APRN, BUREAU DIRECTOR Unavailable Cesar Collins MD Unavailable [phone] Reason for Visit * Reason Comments Medication Refill Encounter Details Date Type Department Care Team (Late st Contact Info) Description 09/17/2024 Refill [facility] - Gastroenterology - [place] [address] [place] [address] Adrienne Rubio APRN, BUREAU DIRECTOR [address] [place] [address] Medication Refill Social History Tobacco Use Types Packs/Day Years Used Date Smoking Tobacco: Never Smokeless Tobacco: Never Alcohol Use Standard Drinks/Week Comments Yes 0 (1 standard drink = 0.6 oz pure alcohol) socially once every 3-4 months, Sexually Active Control Partners Comments Yes Male Comments No Sex and Gender Information Value Date Recorded Sex Assigned at Female 09/09/2023 8:38 PM BOOKMAKER'S CLERK Legal Sex Female 1:13 PM BOOKMAKER'S CLERK Gender Identity Female 09/09/2023 8:38 PM BOOKMAKER'S CLERK Sexual Orientation Not on file documented as of this encounter Miscellaneous Notes * Telephone Encounter - Ludmila Ivy RN - 09/17/2024 9:09 AM BOOKMAKER'S CLERK Medication refilled and signed per [facility] chronic medication standing order for pediatric and adult patients. MAKER'S CLERK documented in this encounter Plan of Treatment Not on file documented as of this encounter Visit Diagnoses Not on filedocumented in this encounter Care Teams Curing Bin Operator Relationship Specialty Start Date End Date Cass Narayan MD PCP - General Family Medicine 07/12/17 Shanelle Reyes MD [address] [id number] Obstetrics & Gynecology 07/12/17 Adrienne Rubio APRN, BUREAU DIRECTOR [address] [place] [address] Nurse Practitioner Advanced Practice Nurse 06/25/23 Cesar Collins MD [address] [place] [address] Consulting Physician Gastroenterology 10/04/23 documented as of this encounter
--- OUTSIDE RECORDS SUMMARY | 2024-11-05 17:56 | XMS_ITS | Clinical Summary ---
Author Organization [facility] Address [address] [address] Phone Care Team Providers Care Gear Tooth Grinding Machine Operator Name Role Phone Cass Narayan MD Primary Care Provider [phone] Shanelle Reyes MD Unavailable Adrienne Rubio APRN, FERN GATHERER Unavailable Cesar Collins MD Unavailable [phone] Allergies No known active allergies Medications Nutritional Supplements (KETO PO) Take by mouth. Activ e diclofenac (CATAFLAM) 50 MG Tablet Take 50 mg by mouth 3 times daily. 05/24/20 23 Active Multiple Vitamins-Minera ls (MULTI ADULT GUMMIES PO) 08/22/20 23 Active nystatin 493835 UNIT/GM Powder USE DIRECTED TOPICALLY NEEDED FOR IRRITATION 08/01/20 23 Active amitriptyline (ELAVIL) 10 MG Tablet Take 1 tablet by mouth nightly 90 Tablet 07/21/20 24 Active dicyclomine (BENTYL) 20 MG Tablet TAKE 1 TABLET BY MOUTH ONCE DAILY IN THE MORNING AND 1 AT BEDTIME 120 Tablet 09/17/19 25 Active omeprazole (PriLOSEC) 40 MG CAPSULE DELAYED RELEASEIndicati ons:Gastroesoph ageal reflux disease, unspecified whether esophagitis present Take 1 capsule by mouth once daily 90 Capsule 10/14/19 25 Active omeprazole (PriLOSEC) 40 MG CAPSULE DELAYED RELEASEIndicati ons:Gastroesoph ageal reflux disease, unspecified whether esophagitis present Take 1 capsule by mouth once daily 90 Capsule 07/21/20 24 025 Discontinued Active Problems No known active problems Encounters Date Type Department Care Team Description 10/14/2024 Refill [facility] G[facility] [address] [place] [address] Adrienne Rubio APRN, MAGED Medication Refill 09/17/2024 Refill [facility] [address] [place] [address] Adrienne Rubio APRN, MAGED Medication Refill from Last 3 Months Immunizations Immunization Administration Dates Next Due Covid-19, Mrna, Lnp-s, Pf, 30 Mcg/0.3 Ml Dose (P fizer) 09/07/2021 Family History Medical History Relation Name Comments Coronary Artery Disease Father Heart Disease Father High Cholesterol Father Hypertension Father Cancer Maternal Grandfather bladder Cancer Mother breast Relation Name Status Comments Father Alive Maternal Grandfather Mother Alive Social History Tobacco Use Types Packs/Day Years Used Date Smoking Tobacco: Never Smokeless Tobacco: Never Tobacco Cessation:Counseling Given: Not Answered Alcohol Use Standard Drinks/Week Comments Yes 0 (1 standard drink = 0.6 oz pure alcohol) socially once every 3-4 months, Sexually Active Control Partners Comments Yes Male Comments No Sex and Gender Information Value Date Recorded Sex Assigned at Female 09/09/2023 8:38 PM MAINTENANCE MAN Legal Sex Female 1:13 PM MAINTENANCE MAN Gender Identity Female 09/09/2023 8:38 PM MAINTENANCE MAN Sexual Orientation Not on file Last Filed Vital Signs Vital Sign Reading Time Taken Comments Blood Pressure 122/78 10/25/2023 4:00 PM MAINTENANCE MAN Pulse 82 10/25/2023 4:00 PM MAINTENANCE MAN Temperature 36.7 C (98 F) 10/25/2023 4:00 PM MAINTENANCE MAN Respiratory Rate 14 10/25/2023 4:00 PM MAINTENANCE MAN Oxygen Saturation 98% 10/25/2023 4:00 PM MAINTENANCE MAN Inhaled Oxygen Concentration - - Weight 116.4 kg (256 lb 9.6 oz) 10/25/2023 4:00 PM MAINTENANCE MAN Height 165.1 cm (5' 5 ) 10/25/2023 4:00 PM MAINTENANCE MAN Body Mass Index 42.7 10/25/2023 4:00 PM MAINTENANCE MAN Plan of Treatment Health Maintenance Due Date Last Done Comments Hepatitis C Virus (HCV) Screening 1984 Mammogram 1984 TdaP Immunization 1984 Hepatitis B Immunization (1 of 3 - 19+ 3-dose series) 2003 Pap Smear 2005 Cervical Cancer Screening (CCS) 2014 HPV/Cotest 2014 Influenza Immunization (#1) 2024 09/15/2013 SARS-COV-2 Immunization ( season) 2024 09/07/2021, 01/03/2021, 12/13/2020 Discussion re Starting/Frequency of Mammograms 2024 Respiratory Syncytial Virus (RSV) Immunization (Adult) (1 - 1-dose 75+ series) 2059 Meningococcal Immunization (ACWY) Aged Out No longer eligible b ased on patient's age to complete this topic Pneumococcal Immunization Combined Aged Out No longer eligible b ased on patient's age to complete this topic Rotavirus Immunization Aged Out No lo nger eligible based on patient's age to complete this topic Insurance [place]ICAID [place] Care Teams Gear Tooth Grinding Machine Operator Relationship Specialty Start Date End Date Cass Narayan MD PCP - General Family Medicine 07/12/17 Shanelle Reyes MD [address] [address] Obstetrics & Gynecology 07/12/17 Adrienne Rubio APRN, FERN GATHERER [address] [place] [address] Nurse Practitioner Advanced Practice Nurse 06/25/23 Cesar Collins MD [address] [place] [address] Consulting Physician Gastroenterology 10/04/23
--- OUTSIDE RECORDS SUMMARY | 2024-11-05 17:56 | XMS_ITS | Referral Summary ---
Author Organization [facility] Address [address] [place] [address] Care Team Providers Care Manager Proposal Name Role Phone Cass Narayan MD Primary [...] Noted Date Diagnosed Date Vestibular migraine 06/20/2022 Social History Tobacco Use Types Packs/Day Years Used Date Smoking Tobacco: Never Tobacco Cessation:Counseling Given: Not Answered Comments Unknown Sex and Gender Information Value Date Recorded Sex Assigned at Not on file Legal Sex Female 6:53 PM AD SETTER Gender Identity Not on file Sexual Orientation Not on file Last Filed [...] 06/20/2022 9:49 AM CDT Plan of Treatment Not on file Insurance [facility] Care Teams Manager Proposal Relationship Specialty Start Date End Date Cass Narayan MD PCP - General Family Medicine 05/30/22 Frandy Wilson MD [address] [facility] PROFESSIONAL [place] [address] Referring Physician Otolaryngology 06/20/22
--- OUTSIDE RECORDS SUMMARY | 2024-11-05 17:56 | XMS_ITS | Encounter Summary ---
Author Organization [facility] Address [address] [place] [address] Phone Care Team Providers Care Paving Block Cutter Name Role Phone Cass Narayan MD Primary Care Provider [phone] Shanelle Reyes MD Unavailable [phone] Adrienne Rubio APRN, OUTSOLE COMPRESSOR Unavailable Cesar Collins MD Unavailable [phone] Reason for Visit * Reason Comments Medication Refill Encounter Details Date Type Department Care Team (Late st Contact Info) Description 07/21/2024 [facility]ill [facility] [place] [address] [place] [address] Adrienne Rubio APRN, OUTSOLE COMPRESSOR [address] [place] [address] Medication Refill Social History Tobacco Use Types Packs/Day Years Used Date Smoking Tobacco: Never Smokeless Tobacco: Never Alcohol Use Standard Drinks/Week Comments Yes 0 (1 standard drink = 0.6 oz pure alcohol) socially once every 3-4 months, Sexually Active Control Partners Comments Yes Male Comments No Sex and Gender Information Value Date Recorded Sex Assigned at Female 09/09/2023 8:38 PM MANAGER COMMODITIES Legal Sex Female 1:13 PM MANAGER COMMODITIES Gender Identity Female 09/09/2023 8:38 PM MANAGER COMMODITIES Sexual Orientation Not on file documented as of this encounter Miscellaneous Notes * Telephone Encounter - Ludmila Ivy RN - 07/21/2024 9:07 AM MANAGER COMMODITIES Medication [facility] and [facility] [place] [place] [facility] medication standing order for pediatric and adult patients. GER COMMODITIES documented in this encounter Plan of Treatment Not on file documented as of this encounter Visit Diagnoses Diagnosis Gastroesophageal reflux disease, unspecified whether esophagitis present documented in this encounter Care Teams Paving Block Cutter Relationship Specialty Start Date End Date Cass Narayan MD PCP - General Family Medicine 07/12/17 Shanelle Reyes MD [address] [id number] Obstetrics & Gynecology 07/12/17 Adrienne Rubio APRN, MAGED [address] [place] [address] Nurse Practitioner Advanced Practice Nurse 06/25/23 Cesar Collins MD [address] [place] [address] Consulting Physician Gastroenterology 10/04/23 documented as of this encounter
--- NOTE | 2024-11-05 18:23 | PC.NURSE ---
Pt. has no wound or injury to R. knee. Pt. states she believes the problem is muscular, inside of her knee.
--- NOTE | 2024-11-05 19:14 | PC.NURSE ---
Pt. to follow up with pcp. Pt. states she needs to get to the pharmacy before it closes so she does not want final set of VS.
== END 2024-11-05 19:17 | disposition home or self-care (01) ==
PROVIDERS: Emergency Provider Physician Assistant; PCP Family Medicine
DX: S83.91XA Sprain of unspecified site of right knee, initial encounter (principal); K21.9 Gastro-esophageal reflux disease without esophagitis; F41.9 Anxiety disorder, unspecified; F32.A Depression, unspecified; Z79.899 Other long term (current) drug therapy; X50.9XXA Other and unspecified overexertion or strenuous movements or postures, initial encounter; Y93.01 Activity, walking, marching and hiking
CPT/HCPCS: 73564; 99283

== ENCOUNTER 2025-01-28 15:58 | Emergency (ER) | payer OTHER, SELFPAY ==
--- NOTE | ~2025-01-28 | CT_ITS ---
CT abdomen pelvis wo con Ordering provider: Rebecca Melton APRN History: 39 years Female with . L flank pain . Comparison: August 21, 2017 Technique: CT abdomen and pelvis without IV and without oral contrast. Automated exposure control and iterative reconstruction technique were employed. The dose-length product was 1617.48 mGy-cm. Findings: VISUALIZED LOWER CHEST: Normal. UPPER ABDOMINAL ORGANS: Liver: Normal. Gallbladder: Normal. Spleen: Normal. Stomach/duodenum: Normal. Pancreas: Normal. Adrenals: Normal. Kidneys: Normal. PELVIC ORGANS: The bladder is normal. BOWEL AND MESENTERY: Colon: No evidence of diverticulitis. Normal appendix. Small Bowel: Normal. No obstruction. Peritoneum/mesentery: No free air or free fluid. No mesenteric lymphadenopathy. RETROPERITONEUM: Normal aorta. No retroperitoneal lymphadenopathy. MUSCULOSKELETAL: Superficial soft tissues: The superficial soft tissues are normal. Bones: Normal spine. IMPRESSION: 1. No evidence of appendicitis, diverticulitis or intestinal obstruction. No kidney stones seen. Reviewed, dictated and finalized at location A. IMPRESSION: 1. No evidence of appendicitis, diverticulitis or intestinal obstruction. No k idney stones seen.
--- OUTSIDE RECORDS SUMMARY | 2025-01-28 16:02 | XMS_ITS | Clinical Summary ---
Author Organization [facility] Address [address] [address] Phone Care Team Providers Care Health Center Assistant Name Role Phone Cass Narayan MD Primary Care Provider Shanelle Reyes MD Unavailable [phone] Adrienne Rubio APRN, PRINTED CIRCUIT DESIGNER Unavailable Cesar Collins MD Unavailable [phone] Supa Vega MD Unavailable [phone] Allergies No known active allergies Medications Nutritional Supplements (KETO PO) Take by mouth. Activ e diclofenac (CATAFLAM) 50 MG Tablet Take 50 mg by mouth 3 times daily. 3 Active Multiple Vitamins-Mineral s (MULTI ADULT GUMMIES PO) 3 Active nystatin 339964 UNIT/GM Powder USE DIRECTED TOPICALLY NEEDED FOR IRRITATION 3 Active amitriptyline (ELAVIL) 10 MG Tablet Take 1 Tablet by mouth nightly. 90 Tablet 5 Active dicyclomine (BENTYL) 20 MG Tablet Take 1 Tablet by mouth 3 times daily as needed for Other (diarrhea). 90 Tablet 2 5 Active omeprazole (PriLOSEC) 40 MG CAPSULE DELAYED RELEASEIndicatio ns:Gastroesophag eal reflux disease, unspecified whether esophagitis present Take 1 Capsule by mouth daily. 90 Capsule 3 Active Active Problems Problem Noted Date Diagnosed Date Irritable bowel syndrome wit h both constipation and diarrhea 12/11/2024 Gastroesophageal reflux disease 12/11/2024 Encounters Date Type Department Care Team Description 12/11/2024 8:30 AM CDT [facility] [place] [address] Supa Vega MD Irritable bowel syndrome with both constipation and diarrhea (Primary Dx); Gastroesophageal reflux disease, unspecified whether esophagitis present Discharge Disposition: Discharged to home or Selfcare 12/11/2024 Travel 12/10/20[facility] [place] [address] Adrienne Rubio APRN, CNP Medication Refill 11/16/[facility] [place] [address] Adrienne Rubio APRN, MAGED Medication Refill from [...] Sex Assigned at Female 09/09/2023 8:38 PM TELECOMMUNICATIONS CABLE JOINTER Legal Sex Female 1:13 PM TELECOMMUNICATIONS CABLE JOINTER Gender Identity Female 09/09/2023 8:38 PM TELECOMMUNICATIONS CABLE JOINTER Sexual Orientation Not on file Last Filed Vital Signs Vital Sign Reading Time Taken Comments Blood Pressure 108/92 12/11/2024 9:07 AM CDT Pulse 67 12/11/2024 9:07 AM CDT Temperature 36.9 C (98.4 F) 12/11/2024 9:07 AM CDT Respiratory Rate 16 12/11/2024 9:07 AM CDT Oxygen Saturation 99% 12/11/2024 9:07 AM CDT Inhaled Oxygen Concentration - - Weight 123.9 kg (273 lb 3.2 oz) 12/11/2024 9:07 AM CDT Height 165.1 cm (5' 5) 12/11/2024 9:07 AM CDT Body Mass Index 45.46 12/11/2024 9:07 AM CDT Plan of Treatment Upcoming Encounters Date Type Department Care Team (Late st Contact Info) Description 12/10/2025 8:30 AM CDT [facility] [place] [address] [place] [address] Adrienne Rubio APRN, PRINTED CIRCUIT DESIGNER [address] [place] [address] Health Maintenance Due Date Last Done Comments Hepatitis C Virus (HCV) Screening 1984 Mammogram 1984 TdaP Immunization 1984 Hepatitis B Immunization (1 of 3 - 19+ 3-dose series) 2003 Pap Smear 2005 Cervical Cancer Screening (CCS) 2014 HPV/Cotest 2014 SARS-COV-2 Immunization ( season) 2024 09/07/2021, 01/03/2021, 12/13/2020 Discussion re Starting/Frequency of Mammograms 2024 Influenza Immunization (Seas on Ended) 2025 09/09/2014, 09/15/2013 Respiratory Syncytial Virus (RSV) Immunization (Adult) (1 - 1-dose 75+ series) 2059 Human Papillomavirus (HPV) Immunization Aged Out No longer eligible b ased on patient's age to complete this topic Meningococcal Immunization (ACWY) Aged Out No longer eligible b ased on patient's age to complete this topic Pneumococcal Immunization Combined Aged Out No longer eligible b ased on patient's age to complete this topic Rotavirus Immunization Aged Out No lo nger eligible based on patient's age to complete this topic Insurance MEDICAID [place] Care Teams Health Center Assistant Relationship Specialty Start Date End Date Cass Narayan MD PCP - General Family Medicine 07/12/17 Shanelle Reyes MD [address] [address] Obstetrics & Gynecology 07/12/17 Adrienne Rubio APRN, PRINTED CIRCUIT DESIGNER [address]2 [place] [address] Nurse Practitioner Advanced Practice Nurse 06/25/23 Cesar Collins MD #2 [place] [address] Consulting Physician Gastroenterology 10/04/23 Supa Vega MD 2 [facility] NATHANAEL [address]A [address] [address] Consulting Physician General Surgery 12/10/24
--- OUTSIDE RECORDS SUMMARY | 2025-01-28 16:02 | XMS_ITS | Clinical Summary ---
Author Organization [facility] Address [address] [place] [address] Care Team Providers Care Instant Print Operator Name Role Phone Cass Narayan MD [...] on file Legal Sex Female 6:53 PM BISQUE GRADER Gender Identity Not on file Sexual Orientation Not on file Obstetrics History Last Filed Vital Signs Vital Sign Reading Time Taken Comments Blood Pressure - - Pulse - - Temperature - - Respiratory Rate - - Oxygen Saturation - - Inhaled Oxygen Concentration - - Weight 121.6 kg (268 lb) 06/20/2022 9:49 AM CDT Height 165.1 cm (5' 5) 06/20/2022 9:49 AM CDT Body Mass Index [...] season) 2024 09/07/2021, 01/03/2021, 12/13/2020 Influenza Vaccine (Season Ended) 2025 09/09/2014, 09/15/2013 HPV Vaccines Aged Out No longer eligi ble based on patient's age to complete this topic Pneumococcal vaccine <65 Aged Out No longer eligible based on patient's age to complete this topic Insurance [facility] Care Teams Instant Print Operator Relationship Specialty Start Date End Date Cass Narayan MD PCP - General Family Medicine 05/30/22 Frandy Wilson MD Referring Physician Otolaryngology 06/20/22
--- OUTSIDE RECORDS SUMMARY | 2025-01-28 16:02 | XMS_ITS | Encounter Summary ---
Author Organization [facility] Address [address] [place] [address] Phone Care Team Providers Care Hair Preparer Name Role Phone Cass Narayan MD Primary Care Provider [phone] Shanelle Reyes MD Unavailable [phone] Adrienne Rubio APRN, RURAL HEALTH CONSULTANT Unavailable Cesar Collins MD Unavailable [phone] Supa Vega MD Unavailable [phone] Reason for Visit * Reason Comments Medication Refill Encounter Details Date Type Department Care Team (Late st Contact Info) Description 09/17/2024 [facility]ill [facility] [place] [address]2 [place] [address] Adrienne Rubio APRN, RURAL HEALTH CONSULTANT [address] [place], [place] [id number] Medication Refill Social History Tobacco Use Types Packs/Day Years Used Date Smoking Tobacco: Never Smokeless Tobacco: Never Alcohol Use Standard Drinks/Week Comments Yes 0 (1 standard drink = 0.6 oz pure alcohol) socially once every 3-4 months, Sexually Active Control Partners Comments Yes Male Comments No Sex and Gender Information Value Date Recorded Sex Assigned at Female 09/09/2023 8:38 PM SENIOR NETWORK SECURITY ENGINEER Legal Sex Female 1:13 PM SENIOR NETWORK SECURITY ENGINEER Gender Identity Female 09/09/2023 8:38 PM SENIOR NETWORK SECURITY ENGINEER Sexual Orientation Not on file documented as of this encounter Miscellaneous Notes * Telephone Encounter - Ludmila Ivy RN - 09/17/2024 9:09 AM SENIOR NETWORK SECURITY ENGINEER Medication refilled and signed per [facility] chronic medication standing order for pediatric and adult patients. [place] NETWORK SECURITY ENGINEER documented in this encounter Plan of Treatment Upcoming Encounters Date Type Department Care Team (Late st Contact Info) Description 12/10/2025 8:30 AM CDT Office Visit [facility] #2 [place] [address] Adrienne Rubio APRN, RURAL HEALTH CONSULTANT [address] [place] [address] documented as of this encounter Visit Diagnoses Not on filedocumented in this encounter Care Teams Hair Preparer Relationship Specialty Start Date End Date Cass Narayan MD PCP - General Family Medicine 07/12/17 Shanelle Reyes MD [address] [place] [address] Obstetrics & Gynecology 07/12/17 Adrienne Rubio APRN, RURAL HEALTH CONSULTANT [address] [place] [address] Nurse Practitioner Advanced Practice Nurse 06/25/23 Cesar Collins MD #2 [place] [address] Consulting Physician Gastroenterology 10/04/23 Supa Vega MD 2 [place] [address] Consulting Physician General Surgery 12/10/24 documented as of this encounter
--- OUTSIDE RECORDS SUMMARY | 2025-01-28 16:02 | XMS_ITS | Referral Summary ---
Author Organization [facility] Address [address] [place] [address] Care Team Providers Care Campus Police Officer Name Role Phone Cass Narayan MD Primary [...] on file Legal Sex Female 6:53 PM MERCHANT MILL UTILITY WORKER Gender Identity Not on file Sexual Orientation [...] Plan of Treatment Not on file Insurance [facility] Care Teams Campus Police Officer Relationship Specialty Start Date End Date Cass Narayan MD PCP - General Family Medicine 05/30/22 Frandy Wilson MD Referring Physician Otolaryngology 06/20/22
--- OUTSIDE RECORDS SUMMARY | 2025-01-28 16:02 | XMS_ITS | Encounter Summary ---
Author Organization [facility] Address [address] [place] [address] Phone Care Team Providers Care Shot Bagger Name Role Phone Cass Narayan MD Primary Care Provider [phone] Shanlele Reyes MD Unavailable [phone] Adrienne Rubio APRN, HEALTH AND WELLNESS COORDINATOR Unavailable Cesar Collins MD Unavailable [phone] Supa Vega MD Unavailable [phone] Reason for Visit * Reason Comments Medication Refill Encounter Details Date Type Department Care Team (Late st Contact Info) Description 11/16/2024 [facility]ill [facility] #2 [place] [address] Adrienne Rubio APRN, HEALTH AND WELLNESS COORDINATOR [address] [place], [place] [id number] Medication Refill Social History Tobacco Use Types Packs/Day Years Used Date Smoking Tobacco: Never Smokeless Tobacco: Never Alcohol Use Standard Drinks/Week Comments Yes 0 (1 standard drink = 0.6 oz pure alcohol) socially once every 3-4 months, Sexually Active Control Partners Comments Yes Male Comments No Sex and Gender Information Value Date Recorded Sex Assigned at Female 09/09/2023 8:38 PM SAT ACT INSTRUCTOR Legal Sex Female 1:13 PM SAT ACT INSTRUCTOR Gender Identity Female 09/09/2023 8:38 PM SAT ACT INSTRUCTOR Sexual Orientation Not on file documented as of this encounter Miscellaneous Notes * Telephone Encounter - Ludmila Ivy RN - 11/18/2024 3:34 PM CDT Medication refilled and signed per [facility] chronic medication standing order for pediatric and adult patients. * Telephone Encounter - Ludmila Ivy RN - 11/18/2024 3:33 PM CDT Spoke with patient, appt scheduled for 12/11/[address] Vega, patient prefers to see MD. * Telephone Encounter - Ludmila Ivy RN - 11/18/2024 3:10 PM CDT Patient left vm per Kalina, called patient back. Left message for patient to call back. * Telephone Encounter - Ludmila Ivy RN - 11/18/2024 9:49 AM CDT Pharmacy requesting refill of: Requested Prescriptions Pending Prescriptions Disp Refills dicyclomine (BENTYL) 20 MG Tablet [Pharmacy Med Name: Dicyclomine HCl 20 MG Oral Tablet] 120 Tablet0 Sig: TAKE 1 TABLET BY MOUTH ONCE DAILY IN THE MORNING AND 1 AT BEDTIME Last fill: 09/17/2024 Patients last OV with GI: 10/25/2023 Next Office Visit with GI: none scheduled. Called patient to offer an appointment. Left message forpatient to call back. documented in this encounter Plan of Treatment Upcoming Encounters Date Type Department Care Team (Late st Contact Info) Description 12/10/2025 8:30 AM CDT [facility] [place] #2 [place] [address] Adrienne Rbuio APRN, HEALTH AND WELLNESS COORDINATOR [address] [place] [address] documented as of this encounter Visit Diagnoses Not on filedocumented in this encounter Care Teams Shot Bagger Relationship Specialty Start Date End Date Cass Narayan MD PCP - General Family Medicine 07/12/17 Shanelle Reyes MD [address] [id number] Obstetrics & Gynecology 07/12/17 Adrienne Rubio APRN, HEALTH AND WELLNESS COORDINATOR [address] [place] [address] Nurse Practitioner Advanced Practice Nurse 06/25/23 Cesar Collins MD #2 [place] [address] Consulting Physician Gastroenterology 10/04/23 Supa Vega MD [address] [address] Consulting Physician General Surgery 12/10/24 documented as of this encounter
--- OUTSIDE RECORDS SUMMARY | 2025-01-28 16:02 | XMS_ITS | Encounter Summary ---
Author Organization [facility] Address [address] [place] [address] Phone Care Team Providers Care Mule Driver Name Role Phone Cass Narayan MD Primary Care Provider [phone] Shanelle Reyes MD Unavailable [phone] Adrienne Rubio APRN, SPOUT POSITIONER Unavailable Cesar Collins MD Unavailable [phone] Supa Vega MD Unavailable [phone] Reason for Visit * Reason Comments Medication Refill Encounter Details Date Type Department Care Team (Late st Contact Info) Description 07/21/2024 Refill [facility] - [facility] [address] [place] [address] Adrienne Rubio APRN, SPOUT POSITIONER [address] [place] [address] Medication Refill Social History Tobacco Use Types Packs/Day Years Used Date Smoking Tobacco: Never Smokeless Tobacco: Never Alcohol Use Standard Drinks/Week Comments Yes 0 (1 standard drink = 0.6 oz pure alcohol) socially once every 3-4 months, Sexually Active Control Partners Comments Yes Male Comments No Sex and Gender Information Value Date Recorded Sex Assigned at Female 09/09/2023 8:38 PM BREAKER OILER Legal Sex Female 1:13 PM BREAKER OILER Gender Identity Female 09/09/2023 8:38 PM BREAKER OILER Sexual Orientation Not on file documented as of this encounter Miscellaneous Notes * Telephone Encounter - Ludmila Ivy RN - 07/21/2024 9:07 AM BREAKER OILER Medication refilled and signed per [facility] chronic medication standing order for pediatric and adult patients. KER OILER documented in this encounter Plan of Treatment Upcoming Encounters Date Type Department Care Team (Late st Contact Info) Description 12/10/2025 8:30 AM CDT Office Visit [facility] - Gastroenterology [facility] [address] [place] [address] Adrienne Rubio APRN, SPOUT POSITIONER [address] [place] [address] documented as of this encounter Visit Diagnoses Diagnosis Gastroesophageal reflux disease, unspecified whether esophagitis present documented in this encounter Care Teams Mule Driver Relationship Specialty Start Date End Date Cass Narayan MD PCP - General Family Medicine 07/12/17 Shanelle Reyes MD [address] [place] [id number] Obstetrics & Gynecology 07/12/17 Adrienne Rubio APRN, SPOUT POSITIONER [address] [place] [address] Nurse Practitioner Advanced Practice Nurse 06/25/23 Cesar Collins MD [address] [place] [address] Consulting Physician Gastroenterology 10/04/23 Supa Vega MD [address] [id number] Consulting Physician General Surgery 12/10/24 documented as of this encounter
[2025-01-28 16:03] VITALS: BP 157/89; PULSE 106; RESP 18; TEMP 37; O2SAT 100
--- NOTE | 2025-01-28 17:15 | ED.BACK ---
HPI - Back Pain/Injury General Chief Complaint: Back Pain/Injury <Bina Taylor PA-C - Last Filed: 01/29/25 09:30> Stated Complaint: Poss kidney stone-left lower back pain <Bina Taylor PA-C - Last Filed: 01/29/25 09:30> Time Seen by Provider: 01/28/25 17:15 <Bina Taylor PA-C - Last Filed: 01/29/25 09:30> Focused HPI: This is a 39 year old female that presents to the ER for left sided low back pain. Ongoing since yesterday. Reports she took Ibuprofen with little relief. Denies fever, vomiting, dysuria, hematuria. GENERAL: Well-appearing, well-nourished, and in no acute distress. HEAD: Normocephalic, atraumatic. CHEST: Clear to auscultation. ?No respiratory distress. HEART: Regular rate and rhythm.? NEURO: ?Alert and oriented x3. Patient screened in triage and initial orders placed.? ?Additional care and disposition to be based upon?diagnostic testing and treatment. <iBna Taylor PA-C - Last Filed: 01/29/25 09:30> Focused HPI: This is a 39 year old female that presents to the ER for left sided low back pain. Ongoing since yesterday. Reports she took Ibuprofen with little relief. Denies fever, vomiting, dysuria, hematuria. Pt endorses a history of sciatica. GENERAL: Well-appearing, well-nourished, and in no acute distress. HEAD: Normocephalic, atraumatic. CHEST: Clear to auscultation. ?No respiratory distress. HEART: Regular rate and rhythm.? NEURO: ?Alert and oriented x3. Patient screened in triage and initial orders placed.? ?Additional care and disposition to be based upon?diagnostic testing and treatment. <Rebecca Melton APRN - Last Filed: 01/29/25 00:18> History of Present Illness HPI Narrative: I agree with the assessment and documentation of Bina Taylor PA-C <Rebecca Melton APRN - Last Filed: 01/29/25 00:18> Related Data Home Medications: Home Medications ?Medication ?Instructions ?Recorded ?Confirmed ?Last Taken ?Type amitriptyline 10 mg tablet 10 mg PO DAILY 11/18/23 11/18/23 Unknown History dicyclomine 20 mg tablet 20 mg PO DAILY 11/18/23 11/18/23 Unknown History omeprazole 40 mg capsule,delayed 40 mg PO DAILY 11/18/23 11/18/23 Unknown History release <Bina Taylor PA-C - Last Filed: 01/29/25 09:30> Allergies/Adverse Reactions: Allergies Allergy/AdvReac Type Severity Reaction Status Date / Time cigarette smoke Allergy Intermediate cough Verified 01/28/25 15:59 <Bina Taylor PA-C - Last Filed: 01/29/25 09:30> Review of Systems Review of Systems: All systems reviewed & are unremarkable except as noted in HPI and below <Rebecca Melton APRN - Last Filed: 01/29/25 00:18> [facility] Past Medical History Medical History: Medical History Right knee pain Chondromalacia patellae, right knee Fatty liver Soft tissue injury of ankle Contusion of bone (normal spontaneous vaginal delivery) Anxiety Depression GERD (gastroesophageal reflux disease) Intractable chronic post-traumatic headache Lymphedema of both lower extremities Migraine without aura and with status migrainosus, not intractable Other specified hearing loss, bilateral <KIMBERLY Escalera Last Filed: 01/29/25 09:30> Surgical History Surgical History: Surgical History H/O rectal sphincterotomy 01/05/23 Rectal exam under anesthesia with right lateral internal sphincterotomy History of sigmoidoscopy 2019 History of colonoscopy 2019 H/O tubal ligation (~04/2021) <Bina Taylor PA-C - Last Filed: 01/29/25 09:30> Family History Family History: Family History Father Hypertension Diabetes mellitus Family history of malignant neoplasm Family history of elevated blood lipids Family history of chronic obstructive pulmonary disease Family history of coronary artery disease Mother Family history of malignant neoplasm of breast, Onset Age: 64 Family history of malignant neoplasm of breast in first degree relative Grandparent Family history of malignant neoplasm of urinary bladder <Bina Taylor PA-C - Last Filed: 01/29/25 09:30> Social History Social History: Social History Social History: caffeine use Smoking status: Never smoker Second hand tobacco smoke exposure: No Alcohol intake: current Drinks per week: 1 Substance use: never Substance use type: does not use Lack of Transportation: No Lack of Food: Never True Current Housing: I Have Housing Concerned About Future Housing: No Difficulty Paying Gas/Electric Bills: No Difficulty Paying for Meds: No Currently Unemployed: No Education: Trade/Vocational Certificate Difficulty w/ Childcare or Family Care: No Living arrangements: with family Occupation/Education: occupation 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 HEAD: Normocephalic, atraumatic. NECK: Supple. No adenopathy, no masses. RESPIRATORY: Airway patent, respirations nonlabored. Clear to auscultation bilaterally, no rales, rhonchi, wheezing. CARDIOVASCULAR: Regular rate and rhythm without murmurs, rubs, or gallops. Peripheral pulses 2+ and equal bilaterally. +R CVA tenderness ABDOMINAL: Soft, nontender, nondistended, no hepatosplenomegaly. Normoactive BS. MUSCULOSKELETAL: Moves all extremities. Strength/ROM intact without gross deformities. Negative straight leg test. SKIN: Warm, dry, normal color. No rashes. NEURO: A&O X3. Speech clear. Cranial nerves II-XII intact. No ataxic movements. PSYCHIATRIC: Appropriate mood and affect. Normal interaction. <Rebecca Melton APRN - Last Filed: 01/29/25 00:18> Course Vital Signs Vital signs: Vital Signs Temperature 98.6 F 01/28/25 16:03 Pulse Rate 106 H 01/28/25 16:03 Respiratory Rate 18 01/28/25 16:03 Blood Pressure 157/89 H 01/28/25 16:03 Pulse Oximetry 100 01/28/25 16:03 Temperature 98.6 F 01/28/25 16:03 Pulse Rate 85 01/29/25 00:46 Respiratory Rate 15 01/29/25 00:46 Blood Pressure 157/89 H 01/28/25 16:03 Pulse Oximetry 100 01/29/25 00:46 <Bina Taylor PA-C - Last Filed: 01/29/25 09:30> Vital Signs Temperature 98.6 F 01/28/25 16:03 Pulse Rate 106 H 01/28/25 16:03 Respiratory Rate 18 01/28/25 16:03 Blood Pressure 157/89 H 01/28/25 16:03 Pulse Oximetry 100 01/28/25 16:03 Temperature 98.6 F 01/28/25 16:03 Pulse Rate 85 01/29/25 00:46 Respiratory Rate 15 01/29/25 00:46 Blood Pressure 157/89 H 01/28/25 16:03 Pulse Oximetry 100 01/29/25 00:46 <Rebecca Melton APRN - Last Filed: 01/29/25 00:18> MDM - Back Pain/Injury MDM Narrative Medical decision making narrative: This is a 39 year old female that presents to the ER for left sided low back pain. Ongoing since yesterday. Reports she took Ibuprofen with little relief. Denies fever, vomiting, dysuria, hematuria. She endorses a history of sciatica. Labs Ordered: CBC, CMP, UA x 2, beta HCG quant Imaging Ordered: CT abdomen pelvis Medications Ordered: [place] p.o. x 2, Toradol 60 mg IM, prednisone 40 mg p.o., Xanaflex PO, Macrobid PO Results: Patient's CBC was unremarkable besides a slightly elevated white blood cell count of 11.5. Patient's CMP was unremarkable. Her 2nd urinalysis indicates no acute abnormalities. Pt's CT scan indicates No evidence of appendicitis, diverticulitis or intestinal obstruction. No kidney stones seen. Diagnosis: Lumbar back pain Patient Education/Shared MDM: Results of lab work and imaging shared with patient. She reports she continues to have pain and believes her urine sample was switched with someone else. A new UA will be sent and pt will get a second dose of [place]. 2400-Pt continues to endorse L back pain. Will give pt a dose of Zanaflex here in the ER. Pt endorses mild improvement of symptoms following medication administration. Patient strongly advised to maintain hydration status upon discharge and follow-up with her PCP as soon as possible. It was explained to patient that her urinanalysis who was within normal limits so her symptoms are not due to urinary tract infection or pyelonephritis. Patient's CT scan did not indicate any abnormalities so a kidney stone could be ruled out. Therefore, patient's pain is most likely musculoskeletal. She reports she has an appointment with Orthopedics tomorrow, so she will bring up her back pain during that time. She will be discharged home with a prescription for Zanaflex and Prednisone. Strict return precautions provided. Patient verbalized understanding and is in agreement with plan. Vital signs stable at time of discharge. All questions answered. <Rebecca Melton APRN - Last Filed: 01/29/25 00:18> Differential Diagnosis Differential diagnosis: Likely lumbar radiculopathy, sciatica, renal colic, pyelonephritis and other (Urinary tract infection, kidney stone) <Rebecca Melton APRN - Last Filed: 01/29/25 00:18> Lab Data Attestation: I reviewed the patient's lab results. <Rebecca Melton APRN - Last Filed: 01/29/25 00:18> Result diagrams: 01/28/25 17:32 01/28/25 17:32 <Bina Taylor PA-C - Last Filed: 01/29/25 09:30> Labs: Lab Results 01/28/25 01/28/25 01/28/25 Range/Units 17:26 17:31 17:32 WBC 11.5 H (4.5-10.0) K/mm3 RBC 4.32 (4.2-5.4) M/mm3 Hgb 12.7 (12.0-15.0) g/dL Hct 39.2 (37.0-47.0) % MCV 90.7 (80-100) fl MCH 29.4 (26-34) pg MCHC 32.4 (32-36) g/dl RDW 13.7 (11.5-14.5) % Plt Count 231 (150-375) k/mm3 MPV 12.1 H (7.4-10.4) fl Immature Gran % (Auto) 0.5 (0-0.5) % Neut % (Auto) 57.1 (45.5-73.1) % Lymph % (Auto) 31.6 (18.3-44.2) % Canyon % (Auto) 8.3 (2.6-8.5) % Eos % (Auto) 1.9 (0-4.4) % Baso % (Auto) 0.6 (0.2-1.2) % Lymph # (Auto) 3.63 H (0.9-3.2) K/mm3 Canyon # (Auto) 1.0 H (0.1-0.6) K/mm3 Eos # (Auto) 0.2 (0-0.3) K/mm3 Baso # (Auto) 0.1 (0.0-0.1) K/mm3 Abs Immat Gran (auto) 0.06 H (0.00-0.031) K/mm3 Absolute Neuts (auto) 6.6 (1.3-6.7) K/mm3 Absolute Nucleated RBC 0.000 (0.0-0.012) K/mm3 Nucleated RBC % 0.0 (0.0-0.2) % Sodium 136 L (137-145) mmol/L Potassium 3.6 (3.4-5.0) mmol/L Chloride 105 (98-107) mmol/L Carbon Dioxide 23 (22-30) mmol/L Anion Gap 8 (4-12) mmol/L BUN 16 (7-17) mg/dL Creatinine 0.92 (0.7-1.0) mg/dL Estim Creat Clear Calc 95 ml/min Estimated GFR > 60 (59 - ) Glucose 94 (65-110) mg/dL Calcium 9.2 (8.4-10.2) mg/dL Total Bilirubin 0.7 (0.2-1.3) mg/dL AST 31 (14-36) U/L ALT 24 (6-35) U/L Alkaline Phosphatase 67 (38-126) U/L Total Protein 8.0 (6.3-8.2) g/dL Albumin 4.4 (3.5-5.1) g/dL Beta HCG, Quant < 2.39 mIU/ML Urine Color Yellow (Yellow) Urine Appearance Clear (Clear) Urine pH 5.5 (5.0-9.0) Ur Specific Vil[place] 1.013 (1.001-1.035) Urine Protein Negative (Negative) mg/dL Urine Glucose (UA) Negative (Negative) mg/dL Urine Ketones Negative (Negative) mg/dL Ur Blood (Man) Negative (Negative) Urine Nitrate Negative (Negative) Urine Bilirubin Negative (Negative) Urine Urobilinogen 0.2 (<2.0) mg/dL Add Ur Microanalysis Reviewed Leukocyte Esterase Rfl Trace H (Negative) RADHA/UL Urine RBC 3-5 H (0-2) /hpf Urine WBC 6-10 H (0-3) /hpf Ur Squamous Epith Cells Occasional (Few) /hpf Urine Bacteria 1+ H /hpf Urine Casts 0-2 05/28/25 Range/Units 23:05 WBC (4.5-10.0) K/mm3 RBC (4.2-5.4) M/mm3 Hgb (12.0-15.0) g/dL Hct (37.0-47.0) % MCV (80-100) fl MCH (26-34) pg MCHC (32-36) g/dl RDW (11.5-14.5) % Plt Count (150-375) k/mm3 MPV (7.4-10.4) fl Immature Gran % (Auto) (0-0.5) % Neut % (Auto) (45.5-73.1) % Lymph % (Auto) (18.3-44.2) % Canyon % (Auto) (2.6-8.5) % Eos % (Auto) (0-4.4) % Baso % (Auto) (0.2-1.2) % Lymph # (Auto) (0.9-3.2) K/mm3 Canyon # (Auto) (0.1-0.6) K/mm3 Eos # (Auto) (0-0.3) K/mm3 Baso # (Auto) (0.0-0.1) K/mm3 Abs Immat Gran (auto) (0.00-0.031) K/mm3 Absolute Neuts (auto) (1.3-6.7) K/mm3 Absolute Nucleated RBC (0.0-0.012) K/mm3 Nucleated RBC % (0.0-0.2) % Sodium (137-145) mmol/L Potassium (3.4-5.0) mmol/L Chloride (98-107) mmol/L Carbon Dioxide (22-30) mmol/L Anion Gap (4-12) mmol/L BUN (7-17) mg/dL Creatinine (0.7-1.0) mg/dL Estim Creat Clear Calc ml/min Estimated GFR (59 - ) Glucose (65-110) mg/dL Calcium (8.4-10.2) mg/dL Total Bilirubin (0.2-1.3) mg/dL AST (14-36) U/L ALT (6-35) U/L Alkaline Phosphatase (38-126) U/L Total Protein (6.3-8.2) g/dL Albumin (3.5-5.1) g/dL Beta HCG, Quant mIU/ML Urine Color Yellow (Yellow) Urine Appearance Clear (Clear) Urine pH 5.5 (5.0-9.0) Ur Specific Vil[place] 1.014 (1.001-1.035) Urine Protein Negative (Negative) mg/dL Urine Glucose (UA) Negative (Negative) mg/dL Urine Ketones Negative (Negative) mg/dL Ur Blood (Man) Negative (Negative) Urine Nitrate Negative (Negative) Urine Bilirubin Negative (Negative) Urine Urobilinogen 0.2 (<2.0) mg/dL Add Ur Microanalysis Leukocyte Esterase Rfl Negative (Negative) RADHA/UL Urine RBC (0-2) /hpf Urine WBC (0-3) /hpf Ur Squamous Epith Cells (Few) /hpf Urine Bacteria /hpf Urine Casts <Bina Taylor PA-C - Last Filed: 01/29/25 09:30> Lab Results 01/28/25 01/28/25 01/28/25 Range/Units 17:26 17:31 17:32 WBC 11.5 H (4.5-10.0) K/mm3 RBC 4.32 (4.2-5.4) M/mm3 Hgb 12.7 (12.0-15.0) g/dL Hct 39.2 (37.0-47.0) % MCV 90.7 (80-100) fl MCH 29.4 (26-34) pg MCHC 32.4 (32-36) g/dl RDW 13.7 (11.5-14.5) % Plt Count 231 (150-375) k/mm3 MPV 12.1 H (7.4-10.4) fl Immature Gran % (Auto) 0.5 (0-0.5) % Neut % (Auto) 57.1 (45.5-73.1) % Lymph % (Auto) 31.6 (18.3-44.2) % Canyon % (Auto) 8.3 (2.6-8.5) % Eos % (Auto) 1.9 (0-4.4) % Baso % (Auto) 0.6 (0.2-1.2) % Lymph # (Auto) 3.63 H (0.9-3.2) K/mm3 Canyon # (Auto) 1.0 H (0.1-0.6) K/mm3 Eos # (Auto) 0.2 (0-0.3) K/mm3 Baso # (Auto) 0.1 (0.0-0.1) K/mm3 Abs Immat Gran (auto) 0.06 H (0.00-0.031) K/mm3 Absolute Neuts (auto) 6.6 (1.3-6.7) K/mm3 Absolute Nucleated RBC 0.000 (0.0-0.012) K/mm3 Nucleated RBC % 0.0 (0.0-0.2) % Sodium 136 L (137-145) mmol/L Potassium 3.6 (3.4-5.0) mmol/L Chloride 105 (98-107) mmol/L Carbon Dioxide 23 (22-30) mmol/L Anion Gap 8 (4-12) mmol/L BUN 16 (7-17) mg/dL Creatinine 0.92 (0.7-1.0) mg/dL Estim Creat Clear Calc 95 ml/min Estimated GFR > 60 (59 - ) Glucose 94 (65-110) mg/dL Calcium 9.2 (8.4-10.2) mg/dL Total Bilirubin 0.7 (0.2-1.3) mg/dL AST 31 (14-36) U/L ALT 24 (6-35) U/L Alkaline Phosphatase 67 (38-126) U/L Total Protein 8.0 (6.3-8.2) g/dL Albumin 4.4 (3.5-5.1) g/dL Beta HCG, Quant < 2.39 mIU/ML Urine Color Yellow (Yellow) Urine Appearance Clear (Clear) Urine pH 5.5 (5.0-9.0) Ur Specific [place] 1.013 (1.001-1.035) Urine Protein Negative (Negative) mg/dL Urine Glucose (UA) Negative (Negative) mg/dL Urine Ketones Negative (Negative) mg/dL Ur Blood (Man) Negative (Negative) Urine Nitrate Negative (Negative) Urine Bilirubin Negative (Negative) Urine Urobilinogen 0.2 (<2.0) mg/dL Add Ur Microanalysis Reviewed Leukocyte Esterase Rfl Trace H (Negative) RADHA/UL Urine RBC 3-5 H (0-2) /hpf Urine WBC 6-10 H (0-3) /hpf Ur Squamous Epith Cells Occasional (Few) /hpf Urine Bacteria 1+ H /hpf Urine Casts 0-2 05/28/25 Range/Units 23:05 WBC (4.5-10.0) K/mm3 RBC (4.2-5.4) M/mm3 Hgb (12.0-15.0) g/dL Hct (37.0-47.0) % MCV (80-100) fl MCH (26-34) pg MCHC (32-36) g/dl RDW (11.5-14.5) % Plt Count (150-375) k/mm3 MPV (7.4-10.4) fl Immature Gran % (Auto) (0-0.5) % Neut % (Auto) (45.5-73.1) % Lymph % (Auto) (18.3-44.2) % Canyon % (Auto) (2.6-8.5) % Eos % (Auto) (0-4.4) % Baso % (Auto) (0.2-1.2) % Lymph # (Auto) (0.9-3.2) K/mm3 Canyon # (Auto) (0.1-0.6) K/mm3 Eos # (Auto) (0-0.3) K/mm3 Baso # (Auto) (0.0-0.1) K/mm3 Abs Immat Gran (auto) (0.00-0.031) K/mm3 Absolute Neuts (auto) (1.3-6.7) K/mm3 Absolute Nucleated RBC (0.0-0.012) K/mm3 Nucleated RBC % (0.0-0.2) % Sodium (137-145) mmol/L Potassium (3.4-5.0) mmol/L Chloride (98-107) mmol/L Carbon Dioxide (22-30) mmol/L Anion Gap (4-12) mmol/L BUN (7-17) mg/dL Creatinine (0.7-1.0) mg/dL Estim Creat Clear Calc ml/min Estimated GFR (59 - ) Glucose (65-110) mg/dL Calcium (8.4-10.2) mg/dL Total Bilirubin (0.2-1.3) mg/dL AST (14-36) U/L ALT (6-35) U/L Alkaline Phosphatase (38-126) U/L Total Protein (6.3-8.2) g/dL Albumin (3.5-5.1) g/dL Beta HCG, Quant mIU/ML Urine Color Yellow (Yellow) Urine Appearance Clear (Clear) Urine pH 5.5 (5.0-9.0) Ur Specific [place] 1.014 (1.001-1.035) Urine Protein Negative (Negative) mg/dL Urine Glucose (UA) Negative (Negative) mg/dL Urine Ketones Negative (Negative) mg/dL Ur Blood (Man) Negative (Negative) Urine Nitrate Negative (Negative) Urine Bilirubin Negative (Negative) Urine Urobilinogen 0.2 (<2.0) mg/dL Add Ur Microanalysis Leukocyte Esterase Rfl Negative (Negative) RADHA/UL Urine RBC (0-2) /hpf Urine WBC (0-3) /hpf Ur Squamous Epith Cells (Few) /hpf Urine Bacteria /hpf Urine Casts <Rebecca Melton APRN - Last Filed: 01/29/25 00:18> Imaging Data Attestation: I personally reviewed and interpreted this imaging study as follows: <Rebecca Melton APRN - Last Filed: 01/29/25 00:18> Radiologist's impression: Impressions Abdomen/Pelvis CT 01/28/25 21:53 IMPRESSION: 1. No evidence of appendicitis, diverticulitis or intestinal obstruction. No kidney stones seen. <Rebecca Ann Marie Melton APRN - Last Filed: 01/29/25 00:18> Critical Care Time Critical Care Time Critical Care Time: No <KIMBERLY Escalera Last Filed: 01/29/25 09:30> Discharge Plan Discharge Clinical Impression: Lumbar back pain, Lumbar radiculopathy <KIMBERLY Escalera Last Filed: 01/29/25 09:30> Patient Disposition: Home <KIMBERLY Escalera Last Filed: 01/29/25 09:30> Condition: Stable <KIMBERLY Escalera Last Filed: 01/29/25 09:30> Instructions: Antibiotic Form, Sciatica (ED), Back Pain (ED) <KIMBERLY Escalera Last Filed: 01/29/25 09:30> Additional Instructions: Please return to the ER with any worsening symptoms. Follow-up with primary care provider as soon as possible. Keep your appointment with Orthopedic surgery tomorrow as planned. Take all medications as prescribed, including regularly scheduled medications. <KIMBERLY Escalera Last Filed: 01/29/25 09:30> Patient Language: Greenlandic <KIMBERLY Escalera Last Filed: 01/29/25 09:30> Prescriptions: New tizanidine 4 mg capsule 4 mg PO HS PRN (Reason: muscle spasticity) Qty: 7 0RF prednisone 20 mg tablet 20 mg PO BID Qty: 10 0RF No Action omeprazole 40 mg capsule,delayed release(DR/EC) 40 mg PO DAILY dicyclomine 20 mg tablet 20 mg PO DAILY amitriptyline 10 mg tablet 10 mg PO DAILY ketorolac 10 mg tablet 10 mg PO Q8H PRN (Reason: pain) 5 Days Qty: 15 0RF Rx Instructions: maximum total duration of 5 days from all oral, intranasal, or parenteral formulations <KIMBERLY Escalera Last Filed: 01/29/25 09:30> Follow-up/Referrals: Cass Narayan MD [Primary Care Provider] - <Bina Taylor PA-C - Last Filed: 01/29/25 09:30> Stand Alone Forms: Work/School Release IP <Bina Taylor PA-C - Last Filed: 01/29/25 09:30> Time of Disposition: 00:17 <Bina Taylor PA-C - Last Filed: 01/29/25 09:30> 00:17 <Rebecca Melton APRN - Last Filed: 01/29/25 00:18>
[2025-01-28 17:54] LABS: Basophils Absolute Auto 0.1 K/mm3 (0.0-0.1); Basophils Percent Auto 0.6 % (0.2-1.2); Eosinophils Absolute Auto 0.2 K/mm3 (0-0.3); Eosinophils Percent Auto 1.9 % (0-4.4); Hematocrit 39.2 % (37.0-47.0); Hemoglobin 12.7 g/dL (12.0-15.0); Immature Granulocyte Absolute 0.06 K/mm3 (0.00-0.031); Immature Granulocyte Percent A 0.5 % (0-0.5); Lymphocytes Absolute Auto 3.63 K/mm3 (0.9-3.2); Lymphocytes Percent Auto 31.6 % (18.3-44.2); Mean Corpuscular HGB Conc 32.4 g/dl (32-36); Mean Corpuscular Hemoglobin 29.4 pg (26-34); Mean Corpuscular Volume 90.7 fl (80-100); Mean Platelet Volume 12.1 fl (7.4-10.4); Monocytes Percent Auto 8.3 % (2.6-8.5); Neutrophils Absolute Auto 6.6 K/mm3 (1.3-6.7); Neutrophils Percent Auto 57.1 % (45.5-73.1); Platelet Count Result 231 k/mm3 (150-375); Red Blood Count 4.32 M/mm3 (4.2-5.4); Red Cell Distribution Width 13.7 % (11.5-14.5); White Blood Count 11.5 K/mm3 (4.5-10.0)
[2025-01-28 18:05] LABS: Add Urine Microscopic? YES; Appearance Urine Clear (Clear); Bacteria Urine 1+ /hpf; Bilirubin Urine Negative (Negative); Blood Urine Negative (Negative); Color Urine Yellow (Yellow); Glucose Urine UA Negative (Negative); Ketones Urine Negative (Negative); Leukocyte Esterase Ur Trace LEU/UL (Negative); Need Manual Microscopic Reviewed; Nitrate Urine Negative (Negative); Non Pathogenic Casts 0-2; Protein Urine Negative (Negative); Specific Grav Ur 1.013 (1.001-1.035); Squamous Epithelial Cell Urine Occasional /hpf (Few); Urobilinogen Urine 0.2 mg/dL (<2.0); pH Urine 5.5 (5.0-9.0)
[2025-01-28 18:06] LABS: Alanine Aminotransferase 24 U/L (6-35); Albumin Level 4.4 g/dL (3.5-5.1); Alkaline Phosphatase 67 U/L (38-126); Anion Gap 8 mmol/L (4-12); Aspartate Amino Transferase 31 U/L (14-36); Bilirubin,Total 0.7 mg/dL (0.2-1.3); Blood Urea Nitrogen 16 mg/dL (7-17); Calcium 9.2 mg/dL (8.4-10.2); Carbon Dioxide 23 mmol/L (22-30); Chloride 105 mmol/L (98-107); Estimated CRCL calculation 95 ml/min; Estimated Glomerular Filt Rate > 60; Glucose 94 mg/dL (65-110); Potassium 3.6 mmol/L (3.4-5.0); Sodium 136 mmol/L (137-145)
--- NOTE | 2025-01-28 18:24 | PC.NURSE ---
Request for pain medication to Bina HARRIS
[2025-01-28] MEDS: HYDROcodone/acetaminophen (*CRX) 5-325 MG TABLET 1 TAB PO ×2 (18:44→22:56)
[2025-01-28 20:10] LABS: Beta HCG Quantitative < 2.39 mIU/ML
--- OUTSIDE RECORDS SUMMARY | 2025-01-28 20:15 | XMS_ITS | Clinical Summary ---
Author Organization [facility] Address [address] [address] Phone Care Team Providers Care Airdox Fitter Name Role Phone Cass Narayan MD Primary Care Provider [phone] Shanelle Reyes MD Unavailable Adrienne Rubio APRN, DRIER TRANSFER CAR OPERATOR Unavailable Cesar Collins MD Unavailable [phone] Supa Vega MD Unavailable [phone] Allergies No known active allergies Medications Nutritional Supplements (KETO PO) Take by mouth. Activ e diclofenac (CATAFLAM) 50 MG Tablet Take 50 mg by mouth 3 times daily. 3 Active Multiple Vitamins-Mineral s (MULTI ADULT GUMMIES PO) 3 Active nystatin 065593 UNIT/GM Powder USE DIRECTED TOPICALLY NEEDED FOR [...] Description 12/11/2024 8:30 AM CDT [facility] [address] [place] [address] Supa Vega MD Irritable bowel syndrome with both constipation and diarrhea (Primary Dx); Gastroesophageal reflux disease, unspecified whether esophagitis present Discharge Disposition: Discharged to home or Selfcare 12/11/2024 Travel 12/10/2024 [facility]ill [facility] [address] [place] [address] Adrienne Rubio APRN, CNP Medication Refill 11/16/2024 Refill [facility] [address] [place] [address] Adrienne Rubio APRN, MAGED Medication Refill from [...] Sex Assigned at Female 09/09/2023 8:38 PM CLIENT SUPPORT ANALYST Legal Sex Female 1:13 PM CLIENT SUPPORT ANALYST Gender Identity Female 09/09/2023 8:38 PM CLIENT SUPPORT ANALYST Sexual Orientation Not on file Last Filed [...] Visit [facility] [place] [address] [place] [address] Adrienne Rubio APRN, DRIER TRANSFER CAR OPERATOR [address] [place] [address] Health Maintenance Due Date Last Done Comments [...] this topic Insurance MEDICAID [place] Care Teams Airdox Fitter Relationship Specialty Start Date End Date Cass Narayan MD PCP - General Family Medicine 07/12/17 Shanelle Reyes MD [address] [address] Obstetrics & Gynecology 07/12/17 Adrienne Rubio APRN, DRIER TRANSFER CAR OPERATOR [address] [place] [address] Nurse Practitioner Advanced Practice Nurse 06/25/23 Cesar Collins MD [address] [place] [address] Consulting Physician Gastroenterology 10/04/23 Supa Vega MD 2 [facility] [address]HANA[address] [address] Consulting Physician General Surgery 12/10/24
--- OUTSIDE RECORDS SUMMARY | 2025-01-28 20:15 | XMS_ITS | Referral Summary ---
Author Organization [facility] Address [address] [place] [address] Care Team Providers Care Yarder Operator Name Role Phone Cass Narayan MD [...] on file Legal Sex Female 6:53 PM BRASS AND WIND INSTRUMENT REPAIRER Gender Identity Not on file Sexual Orientation [...] Plan of Treatment Not on file Insurance [facility] Care Teams Yarder Operator Relationship Specialty Start Date End Date Cass Narayan MD PCP - General Family Medicine 05/30/22 Frandy Wilson MD Referring Physician Otolaryngology 06/20/22
--- OUTSIDE RECORDS SUMMARY | 2025-01-28 20:15 | XMS_ITS | Encounter Summary ---
Author Organization [facility] Address [address] [place] [address] Phone Care Team Providers Care Core Winder Name Role Phone Cass Narayan MD Primary Care Provider [phone] Shanelle Reyes MD Unavailable + [phone] Adrienne Rubio APRN, SUPERVISOR DRAPERY HANGING Unavailable Cesar Collins MD Unavailable [phone] Supa Vega MD Unavailable [phone] Reason for Visit * Reason Comments Medication Refill Encounter Details Date Type Department Care Team (Late st Contact Info) Description 11/16/2024 Refill [facility] #2 [place] [address] Adrienne Rubio APRN, SUPERVISOR DRAPERY HANGING [address] [place], [place] [id number] Medication Refill Social History Tobacco Use Types Packs/Day Years Used Date Smoking Tobacco: Never Smokeless Tobacco: Never Alcohol Use Standard Drinks/Week Comments Yes 0 (1 standard drink = 0.6 oz pure alcohol) socially once every 3-4 months, Sexually Active Control Partners Comments Yes Male Comments No Sex and Gender Information Value Date Recorded Sex Assigned at Female 09/09/2023 8:38 PM SQE Legal Sex Female 1:13 PM SQE Gender Identity Female 09/09/2023 8:38 PM SQE Sexual Orientation Not on file documented as [...] Visit [facility] - [facility] - [place] #2 [place] [address] Adrienne Rubio APRN, SUPERVISOR DRAPERY HANGING [address] [place] [address] documented as of this encounter Visit Diagnoses Not on filedocumented in this encounter Care Teams Core Winder Relationship Specialty Start Date End Date Cass Narayan MD PCP - General Family Medicine 07/12/17 Shanelle Reyes MD [address] [id number] Obstetrics & Gynecology 07/12/17 Adrienne Rubio APRN, SUPERVISOR DRAPERY HANGING [address]2 [place] [address] Nurse Practitioner Advanced Practice Nurse 06/25/23 Cesar Collins MD #2 [place] [address] Consulting Physician Gastroenterology 10/04/23 Supa Vega MD [address] [address] Consulting Physician General Surgery 12/10/24 documented as of this encounter
--- OUTSIDE RECORDS SUMMARY | 2025-01-28 20:15 | XMS_ITS | Encounter Summary ---
Author Organization [facility] Address [address] [place] [address] Phone Care Team Providers Care Range Feeder Name Role Phone Cass Narayan MD Primary Care Provider [phone] Shanelle Reyes MD Unavailable + [phone] Adrienne Rubio APRN, ORDNANCE TRUCK INSTALLATION SUPERVISOR Unavailable Cesar Collins MD Unavailable [phone] Supa Vega MD Unavailable [phone] Reason for Visit * Reason Comments Medication Refill Encounter Details Date Type Department Care Team (Late st Contact Info) Description 09/17/2024 Refill [facility] - [place] #2 [place] [address] Adrienne Rubio APRN, ORDNANCE TRUCK INSTALLATION SUPERVISOR [address] [place], [place] [phone] Medication Refill Social History Tobacco Use Types Packs/Day Years Used Date Smoking Tobacco: Never Smokeless Tobacco: Never Alcohol Use Standard Drinks/Week Comments Yes 0 (1 standard drink = 0.6 oz pure alcohol) socially once every 3-4 months, Sexually Active Control Partners Comments Yes Male Comments No Sex and Gender Information Value Date Recorded Sex Assigned at Female 09/09/2023 8:38 PM BRIDGE TEACHER Legal Sex Female 1:13 PM BRIDGE TEACHER Gender Identity Female 09/09/2023 8:38 PM BRIDGE TEACHER Sexual Orientation Not on file documented as of this encounter Miscellaneous Notes * Telephone Encounter - Ludmila Ivy RN - 09/17/2024 9:09 AM BRIDGE TEACHER Medication refilled and signed per [facility] chronic medication standing order for pediatric and adult patients. GE TEACHER documented in this encounter Plan of Treatment Upcoming Encounters Date Type Department Care Team (Late st Contact Info) Description 12/10/2025 8:30 AM CDT Office Visit [facility] - Gastroenterology [facility] #2 [place] [address] Adrienne Rubio APRN, ORDNANCE TRUCK INSTALLATION SUPERVISOR [address] [place] [address] documented as of this encounter Visit Diagnoses Not on filedocumented in this encounter Care Teams Range Feeder Relationship Specialty Start Date End Date Cass Narayan MD PCP - General Family Medicine 07/12/17 Shanelle Reyes MD [address] [place] [address] Obstetrics & Gynecology 07/12/17 Adrienne Rubio APRN, ORDNANCE TRUCK INSTALLATION SUPERVISOR [address] [place] [address] Nurse Practitioner Advanced Practice Nurse 06/25/23 Cesar Collins MD #2 [place] [address] Consulting Physician Gastroenterology 10/04/23 Supa Vega MD 2 [place] [address] Consulting Physician General Surgery 12/10/24 documented as of this encounter
--- OUTSIDE RECORDS SUMMARY | 2025-01-28 20:15 | XMS_ITS | Encounter Summary ---
Author Organization [facility] Address [address] [place] [address] Phone Care Team Providers Care Informatics Pharmacist Name Role Phone Cass Narayan MD Primary Care Provider [phone] Shanelle Reyes MD Unavailable + [phone] Adrienne Rubio APRN, RAILROAD SIGNAL AND SWITCH OPERATOR Unavailable Cesar Collins MD Unavailable [phone] Supa Vega MD Unavailable [phone] Reason for Visit * Reason Comments Medication Refill Encounter Details Date Type Department Care Team (Late st Contact Info) Description 07/21/2024 Refill [facility] #2 [place] [address] Adrienne Rubio APRN, RAILROAD SIGNAL AND SWITCH OPERATOR [address] [place] [address] Medication Refill Social History Tobacco Use Types Packs/Day Years Used Date Smoking Tobacco: Never Smokeless Tobacco: Never Alcohol Use Standard Drinks/Week Comments Yes 0 (1 standard drink = 0.6 oz pure alcohol) socially once every 3-4 months, Sexually Active Control Partners Comments Yes Male Comments No Sex and Gender Information Value Date Recorded Sex Assigned at Female 09/09/2023 8:38 PM RESPIRATORY DIRECTOR Legal Sex Female 1:13 PM RESPIRATORY DIRECTOR Gender Identity Female 09/09/2023 8:38 PM RESPIRATORY DIRECTOR Sexual Orientation Not on file documented as of this encounter Miscellaneous Notes * Telephone Encounter - Ludmila Ivy RN - 07/21/2024 9:07 AM RESPIRATORY DIRECTOR Medication refilled and signed per [facility] chronic medication standing order for pediatric and adult patients. IRATORY DIRECTOR documented in this encounter Plan of Treatment Upcoming Encounters Date Type Department Care Team (Late st Contact Info) Description 12/10/2025 8:30 AM CDT Office Visit [facility] - Gastroenterology [facility] [address]2 [place] [address] Adrienne Rubio APRN, RAILROAD SIGNAL AND SWITCH OPERATOR #2 [place] [address] documented as of this encounter Visit Diagnoses Diagnosis Gastroesophageal reflux disease, unspecified whether esophagitis present documented in this encounter Care Teams Informatics Pharmacist Relationship Specialty Start Date End Date Cass Narayan MD PCP - General Family Medicine 07/12/17 Shanelle Reyes MD [address] [place] [address] Obstetrics & Gynecology 07/12/17 Adrienne Rubio APRN, RAILROAD SIGNAL AND SWITCH OPERATOR [address] [place] [address] Nurse Practitioner Advanced Practice Nurse 06/25/23 Cesar Collins MD #2 [place] [address] Consulting Physician Gastroenterology 10/04/23 Supa Vega MD [address] [place] [id number] Consulting Physician General Surgery 12/10/24 documented as of this encounter
--- OUTSIDE RECORDS SUMMARY | 2025-01-28 20:15 | XMS_ITS | Clinical Summary ---
Author Organization [facility] Address [address] [place] [address] Care Team Providers Care Maintenance Man Name Role Phone Cass Narayan MD Primary [...] on file Legal Sex Female 6:53 PM WILDLIFE ECOLOGY PROFESSOR Gender Identity Not on file Sexual Orientation [...] age to complete this topic Insurance [facility] Care Teams Maintenance Man Relationship Specialty Start Date End Date Cass Narayan MD PCP - General Family Medicine 05/30/22 Frandy Wilson MD Referring Physician Otolaryngology 06/20/22
[2025-01-28] MEDS: KETOROLAC (*BKC) 60 MG/2 ML VIAL IM (20:39)
[2025-01-28] MEDS: NITROFURANTOIN MONOHYD MACROCR 100 MG CAP PO (22:34)
[2025-01-28] MEDS: predniSONE 20 MG TABLET 40 MG PO (22:34)
[2025-01-28 23:13] LABS: Add Urine Microscopic? NO; Appearance Urine Clear (Clear); Bilirubin Urine Negative (Negative); Blood Urine Negative (Negative); Color Urine Yellow (Yellow); Glucose Urine UA Negative (Negative); Ketones Urine Negative (Negative); Leukocyte Esterase Ur Negative LEU/UL (Negative); Nitrate Urine Negative (Negative); Protein Urine Negative (Negative); Specific Grav Ur 1.014 (1.001-1.035); Urobilinogen Urine 0.2 mg/dL (<2.0); pH Urine 5.5 (5.0-9.0)
[2025-01-29] MEDS: TIZANIDINE HCL 4 MG TABLET PO (00:42)
[2025-01-29 00:46] VITALS: PULSE 85; RESP 15; O2SAT 100
== END 2025-01-29 01:00 | disposition home or self-care (01) ==
PROVIDERS: Physician Assistant; Emergency Provider Registered Nurse; PCP Family Medicine
DX: M54.16 Radiculopathy, lumbar region (principal); I89.0 Lymphedema, not elsewhere classified; G44.321 Chronic post-traumatic headache, intractable; K21.9 Gastro-esophageal reflux disease without esophagitis; F32.A Depression, unspecified; F41.9 Anxiety disorder, unspecified; Z79.899 Other long term (current) drug therapy
CPT/HCPCS: 36415; 74176; 80053; 81001; 81003; 84702; 85025; 87086; 96372; 99284; A9270; J1885; J7512

== ENCOUNTER 2025-06-09 14:45 | Outpatient (RCR) | payer OTHER, SELFPAY ==
--- NOTE | 2025-05-08 15:07 | PTOPEVAL1 ---
Assessment and note entered by Norma Adams, PT Evaluation Information Assessment Status Evaluation Diagnosis M46.1 ICD-10 Condition Codes (PT) Radiculopathy, lumbar region M54.16,Radiculopathy, sacral and sacrococcygeal region M54.18, Difficulty Walking R26.2,Abnormalities of gait and mobility R26.9,Weakness R53.1 Onset approx 3 months ago Subjective Information Reports sudden pain to the back upon waking up, denies any falls or traumatic event that caused it . Pain is felt at lower L side of back and L hip area described as stabbing and sharp at times. Worst with prolonged standing, sitting, walking, laying on the back. Very stiff and tender in the morning. Consistent 7-8/10 highest pain, 3-4/10 lowest pain. Assessment PT Clinical Summary Pt presents to therapy with c/o pain to post hip, demos positive provocative tests for SI jt dysfunction/pain, decreased single leg standing tolerance, postural impairments, decreased strength and gait deficits. Also demos hypermobility of R SI, limited movement/stiffness to L SI. She will benefit from skilled PT for pain management, improve ROM and strength, improve core strength and lumbar stabilization, postural awareness in order to improve functional mobility and indep ambulation on various surfaces. Plan of Care Interventions Check Out for Orthotic/Prosthetic,Electrical Stimulation,Gait Training,Hot Pack/Cold Pack, Manual Therapy,Neuro Re-education,Patient/ Caregiver Education,Therapeutic Activities, Therapeutic Exercise,Ultrasound,Other Other Interventions IASTM, Dry Needling PT Services Indicated Yes Treatment Frequency and 1-2x/wk x 12 sessions Duration These treatments will address the objective and functional deficits as defined above. The patient will be advanced safely and appropriately in order for the patient to progress towards his/her prior level of function. Additional exercises will be introduced and as well as a comprehensive home exercise program upon discharge, if needed, ?to ensure carryover of functional gains achieved in the clinic. This treatment plan has been reviewed and agreement upon by the patient.
--- NOTE | 2025-05-08 15:08 | OPREHPOC ---
Outpatient Therapy Plan of Care This is a Multidisciplinary Plan of Care that may contain components documented by all disciplines (PT, OT, and ST.) PT Problem 1 PT Problem #1 Knowledge Deficit PT Goal 1 Goal / Goal Update Pt. will demo good understanding of diagnosis and prognosis, HEPs. Target Visit 10 PT Problem 2 PT Problem #2 Pain PT Goal 1 Goal / Goal Update Pt will report?pain levels of 1-2/10 at worst when performing squats, walking >300ft and single leg standing.? Target Visit 12 PT Problem 3 PT Problem #3 Impaired Range of Motion PT Goal 1 Goal / Goal Update Pt will be able to perform SLR and ATUL with improved range and without discomfort/increased pain. Target Visit 12 PT Problem 4 PT Problem #4 Impaired Strength PT Goal 1 Goal / Goal Update Pt will demo 4/5 or more in manual muscle testing of lumbar and BLE strength to improve ambulation tolerance. Target Visit 12
--- NOTE | 2025-06-23 09:31 | PCPTNOTE ---
Pt canceled on line but did not give a reason. manager desktop trying to R/S
--- NOTE | 2025-07-28 14:16 | PTOPDC ---
Assessment and note entered by Monica Brice, PT Evaluation Information Assessment Status Discharge - Pt Not Present Diagnosis M46.1 ICD-10 Condition Codes (PT) Radiculopathy, lumbar region M54.16,Radiculopathy, sacral and sacrococcygeal region M54.18, Difficulty Walking R26.2,Abnormalities of gait and mobility R26.9,Weakness R53.1 Onset approx 3 months ago Subjective Information Reports sudden pain to the back upon waking up, denies any falls or traumatic event that caused it . Pain is felt at lower L side of back and L hip area described as stabbing and sharp at times. Worst with prolonged standing, sitting, walking, laying on the back. Very stiff and tender in the morning. Consistent 7-8/10 highest pain, 3-4/10 lowest pain. Assessment PT Clinical Summary Pt attended 4 therapy sessions including evaluation, cancelling 5 therapy sessions outside of that with her last visit being 48 days ago. Pt is thus being discharged from [facility] for nonattendance. She may return to therapy at any time with an updated prescription. Plan of Care PT Services Indicated No
== END 2025-07-28 15:29 | disposition home or self-care (01) ==
LOC: ANHPT 14:45
PROVIDERS: PCP Family Medicine; Visit Provider Nurse Practitioner Adult Health
DX: M46.1 Sacroiliitis, not elsewhere classified (principal)
CPT/HCPCS: 97035; 97110; 97112; 97140; 97161; 97530

== ENCOUNTER 2025-08-05 08:46 | Outpatient (CLI) | payer OTHER, SELFPAY ==
--- OUTSIDE RECORDS SUMMARY | 2025-08-05 09:17 | XMS_ITS | Clinical Summary ---
Author Organization [facility] Address [address] [address] Phone Care Team Providers Care Mineral Wool Insulation Supervisor Name Role Phone Cass Narayan MD Primary Care Provider [phone] Shanelle Reyes MD Unavailable Adrienne Rubio APRN, OFFICE MACHINES TEACHER Unavailable Cesar Collins MD Unavailable [phone] Supa Vega MD Unavailable [phone] Allergies No known active allergies Medications Nutritional Supplements (KETO PO) Take by mouth. Activ e diclofenac (CATAFLAM) 50 MG Tablet Take 50 mg by mouth 3 times daily. 3 Active Multiple Vitamins-Mineral s (MULTI ADULT GUMMIES PO) 3 Active nystatin 014326 UNIT/GM Powder USE DIRECTED TOPICALLY NEEDED FOR IRRITATION 3 Active dicyclomine (BENTYL) 20 MG Tablet Take 1 Tablet by mouth 3 times daily as needed for Other (diarrhea). 90 Tablet 2 5 Active omeprazole (PriLOSEC) 40 MG CAPSULE DELAYED RELEASEIndicatio ns:Gastroesophag eal reflux disease, unspecified whether esophagitis present Take 1 Capsule by mouth daily. 90 Capsule 3 5 Active amitriptyline (ELAVIL) 10 MG Tablet Take 1 Tablet by mouth nightly. 90 Tablet Active Active Problems Problem Noted Date Diagnosed Date Irritable bowel syndrome wit h both constipation and diarrhea 12/11/2024 Gastroesophageal reflux disease 12/11/2024 Immunizations Immunization Administration Dates Next Due Covid-19, [...] Sex Assigned at Female 09/09/2023 8:38 PM PARTICLEBOARD FACTORY WORKER Legal Sex Female 1:13 PM PARTICLEBOARD FACTORY WORKER Gender Identity Female 09/09/2023 8:38 PM PARTICLEBOARD FACTORY WORKER Sexual Orientation Not on file Last Filed [...] Visit [facility] - Gastroenter[facility] #2 [place] [address] Adrienne Rubio, KNITTER HAND, OFFICE MACHINES TEACHER [address] [place] [address] Health Maintenance Due Date Last Done Comments Hepatitis C Virus (HCV) Screening 1984 Mammogram 1984 TdaP Immunization 1984 Varicella Immunization (1 of 2 - 13+ 2-dose series) 1997 Hepatitis B Immunization (1 of 3 - 19+ 3-dose series) 2003 Pap Smear 2005 Human Papillomavirus (HPV) Immunization (1 - 3-dose SCDM series) 2011 Cervical Cancer Screening (CCS) 2014 HPV/Cotest 2014 Discussion re Starting/Frequency of Mammograms 2024 Influenza Immunization (#1) 05/04/202503/2015, 09/15/2013 SARS-COV-2 Immunization ( season) 2025 09/07/2021, 01/03/2021, 12/13/2020 Respiratory Syncytial Virus (RSV) Immunization (Adult) (1 [...] this topic Insurance MEDICAID [employer] Care Teams Mineral Wool Insulation Supervisor Relationship Specialty Start Date End Date Cass Narayan MD PCP - General Family Medicine 07/12/17 Shanelle Reyes MD [address] [address] Obstetrics & Gynecology 07/12/17 Adrienne Rubio APRN, OFFICE MACHINES TEACHER #2 [place] [address] Nurse Practitioner Advanced Practice Nurse 06/25/23 Cesar Collins MD #2 [place] [address] Consulting Physician Gastroenterology 10/04/23 Supa Vega MD [address] [address] Consulting Physician General Surgery 12/10/24
--- OUTSIDE RECORDS SUMMARY | 2025-08-05 09:17 | XMS_ITS | Encounter Summary ---
Author Organization [facility] Address [address] [place] [address] Phone Care Team Providers Care Check Writer Name Role Phone Cass Narayan MD Primary Care Provider [phone] Shanelle Reyes MD Unavailable + [phone] Adrienne Rubio APRN, CLOTH BLEACHING RANGE TENDER Unavailable Cesar Collins MD Unavailable [phone] Supa Vega MD Unavailable [phone] Reason for Visit * Reason Comments Medication Refill Encounter Details Date Type Department Care Team (Late st Contact Info) Description 09/17/2024 Refill [facility] - [facility] #2 [place] [address] Adrienne Rubio APRN, CLOTH BLEACHING RANGE TENDER [address] [place] [address] Medication Refill Social History Tobacco Use Types Packs/Day Years Used Date Smoking Tobacco: Never Smokeless Tobacco: Never Alcohol Use Standard Drinks/Week Comments Yes 0 (1 standard drink = 0.6 oz pure alcohol) socially once every 3-4 months, Sexually Active Control Partners Comments Yes Male Comments No Sex and Gender Information Value Date Recorded Sex Assigned at Female 09/09/2023 8:38 PM YARN SALVAGER Legal Sex Female 1:13 PM YARN SALVAGER Gender Identity Female 09/09/2023 8:38 PM YARN SALVAGER Sexual Orientation Not on file documented as of this encounter Miscellaneous Notes * Telephone Encounter - Ludmila Ivy RN - 09/17/2024 9:09 AM YARN SALVAGER [facility]ication [facility] order for pediatric and adult patients. SALVAGER documented in this encounter Plan of Treatment Upcoming Encounters Date Type Department Care Team (Late st Contact Info) Description 12/10/2025 8:30 AM CDT Office Visit [facility] [address] [place] [address] Adrienne Rubio APRN, CLOTH BLEACHING RANGE TENDER [address] [place] [address] documented as of this encounter Visit Diagnoses Not on filedocumented in this encounter Care Teams Check Writer Relationship Specialty Start Date End Date Cass Narayan MD PCP - General Family Medicine 07/12/17 Shanelle Reyes MD [address] [place] [address] Obstetrics & Gynecology 07/12/17 Adrienne Rubio APRN, CLOTH BLEACHING RANGE TENDER [address] [place] [address] Nurse Practitioner Advanced Practice Nurse 06/25/23 Cesar Collins MD #[address] [place] [address] Consulting Physician Gastroenterology 10/04/23 Supa Vega MD [address] [place] [address] Consulting Physician General Surgery 12/10/24 documented as of this encounter
--- OUTSIDE RECORDS SUMMARY | 2025-08-05 09:17 | XMS_ITS | Encounter Summary ---
Author Organization [facility] Address [address] [place] [address] Phone Care Team Providers Care Medical Unit Secretary Name Role Phone Cass Narayan MD Primary Care Provider [phone] Shanelle Reyes MD Unavailable + [phone] Adrienne Rubio APRN, UTILIZATION MANAGEMENT NURSE Unavailable Cesar Collins MD Unavailable [phone] Supa Vega MD Unavailable [phone] Reason for Visit * Reason Comments Medication Refill Encounter Details Date Type Department Care Team (Late st Contact Info) Description 11/16/2024 Refill [facility] - [facility] #2 [place] [address] Adrienne Rubio APRN, UTILIZATION MANAGEMENT NURSE [address] [place] [address] Medication Refill Social History Tobacco Use Types Packs/Day Years Used Date Smoking Tobacco: Never Smokeless Tobacco: Never Alcohol Use Standard Drinks/Week Comments Yes 0 (1 standard drink = 0.6 oz pure alcohol) socially once every 3-4 months, Sexually Active Control Partners Comments Yes Male Comments No Sex and Gender Information Value Date Recorded Sex Assigned at Female 09/09/2023 8:38 PM MASONRY INSTRUCTOR Legal Sex Female 1:13 PM MASONRY INSTRUCTOR Gender Identity Female 09/09/2023 8:38 PM MASONRY INSTRUCTOR Sexual Orientation Not on file documented [...] Visit [facility] - [facility] - [place] #[address] [place] [address] Adrienne Rubio APRN, UTILIZATION MANAGEMENT NURSE [address] [place] [address] documented as of this encounter Visit Diagnoses Not on filedocumented in this encounter Care Teams Medical Unit Secretary Relationship Specialty Start Date End Date Cass Narayan MD PCP - General Family Medicine 07/12/17 Shanelle Reyes MD [address] [phone] Obstetrics & Gynecology 07/12/17 Adrienne Rubio APRN, UTILIZATION MANAGEMENT NURSE [address] [place] [address] Nurse Practitioner Advanced Practice Nurse 06/25/23 Cesar Collins MD [address] [place] [address] Consulting Physician Gastroenterology 10/04/23 Supa Vega MD [address] [address] Consulting Physician General Surgery 12/10/24 documented as of this encounter
--- OUTSIDE RECORDS SUMMARY | 2025-08-05 09:17 | XMS_ITS | Clinical Summary ---
Author Organization [facility] Address [address] [place] [address] Care Team Providers Care Weekend Caregiver Name Role Phone Cass Narayan MD Primary [...] on file Legal Sex Female 6:53 PM MOLD WASHER Gender Identity Not on file Sexual Orientation [...] Screening 2002 Regular Well Visit/Exam 18-64 2002 HPV Vaccines (1 - 3-dose SCD M series) 2011 Covid-19 Vaccine (4 - 2024-2 6 season) 2025 09/07/2021, 01/03/2021, 12/13/2020 Influenza Vaccine (#1) 2025 5, 09/15/2013 Pneumococcal vaccine <65 Aged Out No longer eligible based on patient's age to complete this topic Insurance [facility] Care Teams Weekend Caregiver Relationship Specialty Start Date End Date Cass Narayan MD PCP - General Family Medicine 05/30/22 Frandy Wilson MD Referring Physician Otolaryngology 06/20/22
--- OUTSIDE RECORDS SUMMARY | 2025-08-05 09:17 | XMS_ITS | Encounter Summary ---
Author Organization [facility] Address [address] [place] [address] Phone Care Team Providers Care Product Inspection Supervisor Name Role Phone Cass Narayan MD Primary Care Provider [phone] Shanelle Reyes MD Unavailable [phone] Adrienne Rubio APRN, ENGLISH INSTRUCTOR Unavailable Cesar Collins MD Unavailable [phone] Supa Vega MD Unavailable [phone] Reason for Visit * Reason Comments Medication Refill Encounter Details Date Type Department Care Team (Late st Contact Info) Description 07/21/2024 Refill [facility] - Gastroenterology [facility] [address] [place] [id number] Adrienne Rubio APRN, ENGLISH INSTRUCTOR [address] [place] [address] Medication Refill Social History Tobacco Use Types Packs/Day Years Used Date Smoking Tobacco: Never Smokeless Tobacco: Never Alcohol Use Standard Drinks/Week Comments Yes 0 (1 standard drink = 0.6 oz pure alcohol) socially once every 3-4 months, Sexually Active Control Partners Comments Yes Male Comments No Sex and Gender Information Value Date Recorded Sex Assigned at Female 09/09/2023 8:38 PM VICE PRESIDENT OF ADVERTISING Legal Sex Female 1:13 PM VICE PRESIDENT OF ADVERTISING Gender Identity Female 09/09/2023 8:38 PM VICE PRESIDENT OF ADVERTISING Sexual Orientation Not on file documented as of this encounter Miscellaneous Notes * Telephone Encounter - Ludmila Ivy RN - 07/21/2024 9:07 AM VICE PRESIDENT OF ADVERTISING Medication refilled and signed per [facility] chronic medication standing order for pediatric and adult patients. PRESIDENT OF ADVERTISING documented in this encounter Plan of Treatment Upcoming Encounters Date Type Department Care Team (Late st Contact Info) Description 12/10/2025 8:30 AM CDT Office Visit [facility] - Gastroenterology [facility] [address] [place] [address] Adrienne Rubio APRN, ENGLISH INSTRUCTOR [address] [place] [address] documented as of this encounter Visit Diagnoses Diagnosis Gastroesophageal reflux disease, unspecified whether esophagitis present documented in this encounter Care Teams Product Inspection Supervisor Relationship Specialty Start Date End Date Cass Narayan MD PCP - General Family Medicine 07/12/17 Shanelle Reyes MD [address]22 [address] [place] [id number] Obstetrics & Gynecology 07/12/17 Adrienne Rubio APRN, ENGLISH INSTRUCTOR [address] [place] [address] Nurse Practitioner Advanced Practice Nurse 06/25/23 Cesar Collins MD [address] [place] [address] Consulting Physician Gastroenterology 10/04/23 Supa Vega MD [address] [id number] Consulting Physician General Surgery 12/10/24 documented as of this encounter
--- NOTE | 2025-08-05 09:20 | NEURO_ITS ---
Impression: # Complains of numbness of hands. ? # Evolving Carpal Tunnel Syndrome, right more than left, involving sensory, left more than right. ? 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 ? # Normal Needle/ EMG exam. Nerve Conduction Studies ?Stim Site NR Peak (ms) P-T Amp (?V) Site1 Site2 Delta-P (ms) Dist (cm) Jin (m/s) Left Median Anti Sensory (2-3nd Digit) Wrist ? 3.5 13.3 Wrist 2-3nd Digit 3.5 14.0 40 Wrist ? 3.7 14.9 Wrist 2-3nd Digit 3.5 14.0 40 Right Median Anti Sensory (2-3nd Digit) Wrist ? 4.0 10.7 Wrist 2-3nd Digit 4.0 14.0 35 Wrist ? 4.2 12.1 Wrist 2-3nd Digit 4.0 14.0 35 Left Radial Anti Sensory (Base 1st Digit) Wrist ? 2.1 12.1 Wrist Base 1st Digit 2.1 0.0 Right Radial Anti Sensory (Base 1st Digit) Wrist ? 2.2 9.0 Wrist Base 1st Digit 2.2 0.0 Left Ulnar Anti Sensory (5th Digit) Wrist ? 2.5 36.2 Wrist 5th Digit 2.5 14.0 56 Right Ulnar Anti Sensory (5th Digit) Wrist ? 2.3 38.0 Wrist 5th Digit 2.3 14.0 61 ?Stim Site NR Onset (ms) O-P Amp (mV) Site1 Site2 Delta-0 (ms) Dist (cm) Jin (m/s) Left Median Motor (Abd Poll Brev) Wrist ? 3.4 6.4 Elbow Wrist 4.8 29.0 60 Elbow ? 8.2 5.7 Right Median Motor (Abd Poll Brev) Wrist ? 3.9 6.9 Elbow Wrist 4.5 31.0 69 Elbow ? 8.4 8.0 Left Ulnar Motor (Abd Dig Minimi) Wrist ? 2.1 3.7 A Elbow Wrist 6.2 31.0 50 A Elbow ? 8.3 3.6 B Elbow Wrist 4.4 22.0 50 B Elbow ? 6.5 4.7 Right Ulnar Motor (Abd Dig Minimi) Wrist ? 2.0 4.9 A Elbow Wrist 5.6 30.0 54 A Elbow ? 7.6 4.5 B Elbow Wrist 4.3 23.0 53 B Elbow ? 6.3 4.5 F Wave Studies ?NR F-Lat (ms) L-R F-Lat (ms) Left Median (Mrkrs) (Abd Poll Brev) ? 27.45 0.96 Right Median (Mrkrs) (Abd Poll Brev) ? 28.40 0.96 Left Ulnar (Mrkrs) (Abd Dig Min) ? 27.97 0.54 Right Ulnar (Mrkrs) (Abd Dig Min) ? 27.43 0.54 Electromyography ?Side Muscle Nerve Root Ins Act Fibs Amp Dur Recrt Comment Right 1stDorInt Ulnar C8-T1 Nml Nml Nml Nml Nml Right Ext Indicis Radial (Post Int) C7-8 Nml Nml Nml Nml Nml Right Ext Digitorum Radial (Post Int) C7-8 Nml Nml Nml Nml Nml Right BrachioRad Radial C5-6 Nml Nml Nml Nml Nml Right PronatorTeres Median C6-7 Nml Nml Nml Nml Nml Right Abd Poll Brev Median C8-T1 Nml Nml Nml Nml Nml Right ABD Dig Min Ulnar C8-T1 Nml Nml Nml Nml Nml Right FlexPolLong Median (Ant Int) C7-8 Nml Nml Nml Nml Nml Right Abd Poll Long Radial (Post Int) C7-8 Nml Nml Nml Nml Nml Left 1stDorInt Ulnar C8-T1 Nml Nml Nml Nml Nml Left Ext Indicis Radial (Post Int) C7-8 Nml Nml Nml Nml Nml Left Ext Digitorum Radial (Post Int) C7-8 Nml Nml Nml Nml Nml Left BrachioRad Radial C5-6 Nml Nml Nml Nml Nml Left PronatorTeres Median C6-7 Nml Nml Nml Nml Nml Left Abd Poll Brev Median C8-T1 Nml Nml Nml Nml Nml Left ABD Dig Min Ulnar C8-T1 Nml Nml Nml Nml Nml Left FlexPolLong Median (Ant Int) C7-8 Nml Nml Nml Nml Nml Left Abd Poll Long Radial (Post Int) C7-8 Nml Nml Nml Nml Nml
== END 2025-08-05 08:47 | disposition home or self-care (01) ==
PROVIDERS: PCP Family Medicine; Visit Provider Nurse Practitioner Family
DX: R20.0 Anesthesia of skin (principal); R20.2 Paresthesia of skin
CPT/HCPCS: 95886; 95911